=== PATIENT | female | born 1985 | race Caucasian/White ===

== ENCOUNTER 2021-02-05 08:10 | Outpatient (CLI) | payer BC, SELFPAY ==
--- NOTE | 2021-02-17 17:13 | WPDHOMESLEEP ---
Sleep Study - Home Unattended Date of Study: 02/05/21 <Ashia Jackson DO - Last Filed: 02/17/21 17:47> Ordering Provider: Natasha Miller NP <Ashia Jackson DO - Last Filed: 02/17/21 17:47> Interpreting Provider: Ashia Jackson DO <Ashia Jackson DO - Last Filed: 02/17/21 17:47> Home Sleep Study Type: Apnea Link Air <Ashia Jackson DO - Last Filed: 02/17/21 17:47> Height: 1.63 m <Ashia Jackson DO - Last Filed: 02/17/21 17:47> Weight: 101.605 kg <Ashia Jackson DO - Last Filed: 02/17/21 17:47> Body Mass Index: 38.4 <Ashia Jackson DO - Last Filed: 02/17/21 17:47> Neck Circumference (inches): 14.50 <Ashia Jackson DO - Last Filed: 02/17/21 17:47> [place]: 6 <Ashia Jackson DO - Last Filed: 02/17/21 17:47> Reason for Sleep Study The patient has snoring, daytime sleepiness and witnessed apneas. <Ashia Jackson DO - Last Filed: 02/17/21 17:47> Sleep History The patient is a 36 y/o female with asthma and anxiety that had a home sleep test ordered due to snoring, witnessed apneas and excessive daytime sleepiness. 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 She denies awakening from sleep short of breath. She rarely awakens at night with heartburn, belching or cough. The patient frequently snores loud enough that others complain. The patient frequently has breathing problems at night observed by others. The patient denies heart palpitations throughout the night. The patient denies sleep paralysis, cataplexy, hypnagogic/hypnopompic hallucinations. The patient rarely has trouble at work due to sleepiness. The patient rarely has nightmares. The patient rarely feels sad or depressed but often feels anxious. The patient denies kicking throughout the night. She denies crawling and aching feelings in his legs as well as leg pain. She often grinds her teeth at night and frequently wakes up with morning jaw pain. She is rarely bothered by pain throughout the day and is never awakened by pain during the night. The patient rarely wakes up feeling stiff in the morning with sore and achy muscles. The patient states that she goes to bed at 12:30 am on the weekdays and the weekends. It takes her 5 minutes to fall asleep. She wakes up 5 times throughout the night to roll over and she can fall back asleep within 1 minute. The patient wakes up at 7 am on the weekdays and the weekends. She gets 6.5 hours of sleep nightly. She currently lives with her and 3 kids. She does not consume any caffeinated beverages 2 hours prior to bedtime. The patient does not engage in physical exercise before bedtime. She will watch television before falling asleep. She does not take naps in the afternoon. The patient does drink 3 caffeinated beverages per day. The patient will drink 1 alcoholic beverage per day. The patient denies tobacco and recreational drug use. <Ashia Jackson DO - Last Filed: 02/17/21 17:47> [facility] Past Medical History Medical History: Medical History Anxiety disorder, unspecified (~05/2018) Asthma (~1988) Broken finger Dyslipidemia Tibia and fibula open fracture, right (~11/2018) <Ashia Jackson DO - Last Filed: 02/17/21 17:47> Surgical History Surgical History: Surgical History H/O dilation and curettage 03/04/2014 Status post ORIF of fracture of ankle (~11/2018) Right ankle and leg plate and 7 screws (one broken) <Ashia Jackson DO - Last Filed: 02/17/21 17:47> Family History Family History: Family History Grandparent Family history of glaucoma Cerebrovascular accident Family history of heart disease in male family member before age 55 Father Family history of heart disease in male family member before ag
[2021-02-17 17:46] VITALS: BMI 38.4
== END 2021-02-08 09:47 | disposition home or self-care (01) ==
LOC: ANHCSM 08:12
PROVIDERS: PCP Family Medicine; Visit Provider Nurse Practitioner Family
DX: G47.10 Hypersomnia, unspecified (principal); G47.9 Sleep disorder, unspecified
CPT/HCPCS: 95806

== ENCOUNTER 2022-03-10 15:02 | Outpatient (CLI) | payer BC, SELFPAY ==
[2022-03-10 16:51] LABS: SARS-CoV-2 RNA PCR Negative
== END 2022-03-10 15:03 | disposition home or self-care (01) ==
LOC: ANHLAB 15:06
PROVIDERS: PCP Family Medicine; Visit Provider Nurse Practitioner Family
DX: R68.89 Other general symptoms and signs (principal); Z20.822 Contact with and (suspected) exposure to COVID-19
CPT/HCPCS: U0003; U0005

== ENCOUNTER 2022-03-14 09:38 | Outpatient (CLI) | payer BC, SELFPAY ==
--- NOTE | 2022-03-14 11:00 | NEURO_ITS ---
Impression: # Complains of pain in upper extremities. # Subtle evolving Carpal Tunnel Syndrome. # No ulnar neuropathy. # Normal needle/EMG exam. Motor Nerve Conduction Upper Extremities Median Nerve Conduction Velocity (m/sec) Terminal Latency (msec) Response Voltage(mV) Elbow-Wrist Wrist Elbow Wrist Right 60 3.5 3 4 Left 59 3.3 2 3 Ulnar Nerve Conduction Velocity (m/sec) Terminal Latency (msec) Response Voltage(mV) Above Elbow Below Elbow Wrist Above Elbow Below Elbow Wrist Right 60 2.5 7 8 Left 59 2.5 6 7 F-Wave Latency Median (ms) Ulnar (ms) Right 27.4 26.8 Left 27.4 27.2 Sensory Nerve Conduction Upper Extremities Median Nerve Stimulation Terminal Latency (msec) Wrist/Digit Response Voltage (uV) Wrist Right 3.2/3.2 68/73 Left 3.0/3.0 68/74 Ulnar Nerve Stimulation Terminal Latency (msec) Wrist/Digit Response Voltage (uV) Wrist Right 2.5 72 Left 2.3 73 Radial Nerve Terminal Latency (msec) Response Voltage(mV) Right 2.3 12 Left 2.0 21 Left Right Muscles Examined Fibrillation Fasciculation Scarcity Voltage Duration Left Right Left Right Left Right Left Right Left Right Deltoid Biceps X X Brachioradialis Triceps X X Pronator Teres X X Ext Indicis X X Ext Digitorum X X Abd Poll Brev X X 1st Dorsal Interosseus Paraspinals MTDD
== END 2022-03-14 09:39 | disposition home or self-care (01) ==
PROVIDERS: PCP Family Medicine; Visit Provider Family Medicine
DX: R20.0 Anesthesia of skin (principal)
CPT/HCPCS: 95886; 95911

== ENCOUNTER 2022-03-29 07:55 | Outpatient (CLI) | payer BC, SELFPAY ==
--- NOTE | 2022-04-18 20:12 | WPDSLEEPSTUD ---
Sleep Study Date of Study: 03/29/22 Ordering Provider: Natasha Miller NP Interpreting Physician: Yajaira Jean Baptiste MD Sleep Study Type: Polysomnogram Height: 1.63 m Weight: 99.79 kg Body Mass Index: 37.8 Neck Circumference (inches): 16.5 [place]: 6 Reason for Sleep Study * Home sleep test 02/05/2021 - AHI was 1 minimum saturation 92%. This was a negative study, and she has persistent sleepiness and loud snoring. Sleep History Eboni Pettit is a 37-year-old female with asthma and anxiety. She had a negative home sleep test February 05, 2021. She returns for a basic nocturnal polysomnogram because she continues to have significant complaints of snoring, witnessed apneas and excessive daytime sleepiness. 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 She denies awakening from sleep short of breath. She rarely awakens at night with heartburn, belching or coughing. The patient frequently snores loudly enough that others complain. The patient frequently has breathing problems at night observed by others. The patient denies heart palpitations throughout the night. The patient denies feeling paralyzed on sleep onset or waking, muscle weakness with strong emotion, or vivid dreams on sleep onset or waking. The patient rarely has trouble at work due to sleepiness. The patient rarely has nightmares. The patient rarely feels sad or depressed but often feels anxious. The patient denies kicking throughout the night. She denies crawling and aching feelings in her legs as well as leg pain. She often grinds her teeth at night and frequently wakes up with morning jaw pain. She is rarely bothered by pain throughout the day and is never awakened by pain during the night. The patient rarely wakes up feeling stiff in the morning with sore and achy muscles. Normal bedtime is 12:30 am on the weekdays, taking 5 minutes to fall asleep. She wakes up 5 times throughout the night to roll over and she can fall back asleep within 1 minute. The patient wakes up at 7 am on the weekdays and the weekends. She gets 6.5 hours of sleep nightly. She currently lives with her and 3 kids. She does not take naps in the afternoon. she never awakens feeling refreshed. She always has difficulties with memory and concentration. In the last year she reports gaining 20 lb. Habits: No tobacco. Caffeine: 3 caffeinated beverages per day. Alcohol: 1 alcoholic beverage per day. No recreational drug use. [facility] Past Medical History Medical History Anxiety disorder, unspecified (~05/2018) Asthma (~1987) Broken finger Dyslipidemia Tibia and fibula open fracture, right (~11/2018) Surgical History Surgical History H/O dilation and curettage 03/04/2014 Status post ORIF of fracture of ankle (~11/2018) Right ankle and leg plate and 7 screws (one broken) Family History Family History Grandparent Family history of glaucoma Cerebrovascular accident Family history of heart disease in male family member before age 55 Father Family history of heart disease in male family member before age 55 Social History Social History Smoking status: Never smoker Second hand tobacco smoke exposure: No Alcohol intake: current Drinks per week: 8 Substance use: never Lack of Transportation: No Lack of Food: Never True Current Housing: I Have Housing Concerned About Future Housing: No Difficulty Paying Gas/Electric Bills: No Difficulty Paying for Meds: No Currently Unemployed: No Education: Bachelor's Degree Difficulty w/ Childcare or Family Care: No 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
[2022-04-18 21:14] VITALS: BMI 37.8
== END 2022-03-30 06:28 | disposition home or self-care (01) ==
LOC: ANHCSM 07:56
PROVIDERS: PCP Family Medicine; Visit Provider Nurse Practitioner Family
DX: R40.0 Somnolence (principal); R06.83 Snoring; F41.9 Anxiety disorder, unspecified; E78.5 Hyperlipidemia, unspecified
CPT/HCPCS: 95810

== ENCOUNTER 2022-03-29 10:54 | Outpatient (CLI) | payer BC, SELFPAY ==
[2022-03-29 18:57] LABS: Basophils Percent Auto 0.6 % (0.2-1.2); Eosinophils Absolute Auto 0.1 K/mm3 (0-0.3); Eosinophils Percent Auto 1.4 % (0-4.4); Hematocrit 46.7 % (37.0-47.0); Hemoglobin 14.7 g/dL (12.0-15.0); Immature Granulocyte Absolute 0.03 K/mm3 (0.00-0.031); Immature Granulocyte Percent A 0.5 % (0-0.5); Lymphocytes Percent Auto 27.6 % (18.3-44.2); Mean Corpuscular HGB Conc 31.5 g/dl (32-36); Mean Corpuscular Hemoglobin 30.7 pg (26-34); Mean Corpuscular Volume 97.5 fl (80-100); Mean Platelet Volume 9.3 fl (7.4-10.4); Monocytes Absolute Auto 0.3 K/mm3 (0.1-0.6); Monocytes Percent Auto 5.1 % (2.6-8.5); Neutrophils Absolute Auto 4.2 K/mm3 (1.3-6.7); Neutrophils Percent Auto 64.8 % (45.5-73.1); Platelet Count Result 275 k/mm3 (150-375); Red Blood Count 4.79 M/mm3 (4.2-5.4); Red Cell Distribution Width 13.2 % (11.5-14.5); White Blood Count 6.5 K/mm3 (4.5-10.0)
[2022-03-29 19:28] LABS: Alanine Aminotransferase 29 U/L (6-35); Albumin Level 4.4 g/dL (3.5-5.1); Alkaline Phosphatase 68 U/L (38-126); Anion Gap 10 mmol/L (8-16); Aspartate Amino Transferase 52 U/L (14-36); Bilirubin,Total 0.6 mg/dL (0.2-1.3); Blood Urea Nitrogen 7 mg/dL (7-17); Calcium 8.9 mg/dL (8.4-10.2); Carbon Dioxide 29 mmol/L (22-30); Chloride 102 mmol/L (98-107); Estimated Glomerular Filt Rate > 60; Glucose 93 mg/dL (65-110); Potassium 3.9 mmol/L (3.4-5.0); Sodium 141 mmol/L (137-145)
[2022-03-29 20:30] LABS: Iron 111 ug/dL (37-170)
[2022-03-29 20:39] LABS: Percent Iron Saturation 37 % (20-50)
== END 2022-03-29 10:55 | disposition home or self-care (01) ==
LOC: ANHGOSHLAB 10:55
PROVIDERS: PCP Family Medicine; Visit Provider Nurse Practitioner Family
DX: R53.83 Other fatigue (principal); Z13.220 Encounter for screening for lipoid disorders
CPT/HCPCS: 36415; 80053; 82607; 82728; 83540; 83550; 84443; 85025

== ENCOUNTER → 2023-04-27 13:32 | Outpatient (CLI) | payer BC, SELFPAY ==
--- NOTE | ~2023-04-27 | XR_ITS ---
EXAMINATION: XR chest 2V DATE: 04/27/2023 13:46 INDICATION: Shortness of breath. TECHNIQUE: Frontal and lateral views of the chest were obtained. COMPARISON: Chest 2 views 10/24/2017 FINDINGS: There is no pneumonia, pleural effusion, or pneumothorax. The heart size is normal. IMPRESSION: 1. No acute cardiopulmonary disease. Reviewed, dictated and finalized at location A. MACY SERVICE ASSOCIATE
== END ==
PROVIDERS: PCP Nurse Practitioner Family; Visit Provider Nurse Practitioner Family
DX: R06.02 Shortness of breath (principal)
CPT/HCPCS: 71046

== ENCOUNTER 2023-06-01 09:17 | Outpatient (CLI) | payer BC, SELFPAY ==
--- NOTE | ~2023-06-01 | CT_ITS ---
EXAMINATION: CT sinus wo con DATE: 06/01/2023 09:59 INDICATION: Chronic sinusitis TECHNIQUE: Computed tomography (CT) of the paranasal sinuses was performed without contrast. Iterativ e reconstruction technique was employed. Exam dose: 352.32 mGy-cm total exam DLP. COMPARISON: None FINDINGS: Midline nasal septum Symmetric moderately prominent soft tissue swelling of the nasal turbinates. Bilateral middle nasal turbinate intralamellar cell. Up to 8 mm vertical 16.7 mm horizontal soft tissue density at the floor of the left maxillary antrum. Minimal focal soft tissue thickening is noted in the posterior right ethmoid area. Otherwise there i s no mucoperiosteal thickening or soft tissue mass density or fluid level of any of the paranasal sin uses. Left and probable right nasal antral window. The mastoid air cells are normally developed and aerated. Middle and inferior apparatus appear normal bilaterally. IMPRESSION: Approximately 8 x 16 mm soft tissue thickening at the floor of the left maxillary sinus and mild focal right ethmoid air cell mucoperiosteal thickening Paranasal sinuses and mastoid air cells are otherwise normally developed and aerated Left and probable right nasal antral windows Reviewed, dictated and finalized at Location A. Reviewed, dictated and finalized at location L. N GATEMAN IMPRESSION: Approximately 8 x 16 mm soft tissue thickening at the floor of the left maxillary sinus and mild focal right ethmoid air cell mucoperiosteal thic kening Paranasal sinuses and mastoid air cells are otherwise normally developed and ae rated Left and probable right nasal antral windows
== END 2023-06-01 09:18 | disposition home or self-care (01) ==
LOC: ANHIMG 09:20
PROVIDERS: PCP Nurse Practitioner Family; Visit Provider Allergy & Immunology
DX: J32.9 Chronic sinusitis, unspecified (principal)
CPT/HCPCS: 70486

== ENCOUNTER 2024-06-24 11:22 | Outpatient (CLI) | payer BC, SELFPAY ==
--- NOTE | ~2024-06-24 | XR_ITS ---
EXAM: XR finger 2nd RT min 2V DATE: 06/24/2024 11:35 HISTORY: M79.646 - Pain in unspecified finger(s) . COMPARISON: None available. FINDINGS: Normal mineralization. No fracture or dislocation. No lytic or blastic lesion. Joint space s are maintained. No erosion or periosteal change. Soft tissues within normal limits. IMPRESSION: No acute osseous finding in the right second digit. Reviewed, dictated and finalized at location K. NEERING GEOLOGIST
== END 2024-06-24 11:23 | disposition home or self-care (01) ==
LOC: GOSHIMG 11:22
PROVIDERS: PCP Student in an Organized Health Care Education/Training Program; Visit Provider Student in an Organized Health Care Education/Training Program
DX: M79.644 Pain in right finger(s) (principal)
CPT/HCPCS: 73140

== ENCOUNTER 2024-07-16 08:30 | Outpatient (CLI) | payer BC, SELFPAY ==
--- OUTSIDE RECORDS SUMMARY | 2024-07-16 08:44 | XMS_ITS | Encounter Summary ---
Author Organization [facility] Address [address] [place] [address] Care Team Providers Care Oracle Developer Name Role Phone Andre Lopez MD Primary Care Provider Encounter Details Date Type Department Care Team (Late st Contact Info) Description 05/08/2006 Outpatient Historical [facility] Family Medicine Tia Aragon [address] [facility] [place] [address] [place] [address] [address] [place] [address] Social History Tobacco Use Types Packs/Day Years Used Date Smoking Tobacco: Never Assessed Comments Unknown Sex and Gender Information Value Date Recorded Sex Assigned at Not on file Legal Sex Female 2:59 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 Gender Identity Not on file Sexual Orientation Not on file documented as of this encounter Last Filed Vital Signs Vital Sign Reading Time Taken Comments Blood Pressure 122/80 05/08/2006 9:00 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 Pulse 72 05/08/2006 9:00 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 Temperature - - Respiratory Rate - - Oxygen Saturation - - Inhaled Oxygen Concentration - - Weight 85.3 kg (188 lb) 05/08/2006 9:00 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 Height - - Body Mass Index - - documented in this encounter Plan of Treatment Not on file documented as of this encounter Visit Diagnoses Not on filedocumented in this encounter Additional Health Concerns Infection Onset Date Last Indicated Resolved Time R/O Respiratory 09/19/2021 09/19/2021 09/19/2021 8 :47 PM CDT RHINO/ENTEROVIRUS (Adult) 09/19/2021 09/19/2021 1:16 AM CDT documented as of this encounter Care Teams Oracle Developer Relationship Specialty Start Date End Date Andre Lopez MD [address] [place] [address] PCP - General Family Practice 10/30/15 documented as of this encounter
--- OUTSIDE RECORDS SUMMARY | 2024-07-16 08:44 | XMS_ITS | Encounter Summary ---
Author Organization [facility] Address [address] [place] [address] Attn: Epic Prelude ADT [facility] [place] [place] [address] Care Team Providers Care Lap Maker Name Role Phone Andre Lopez MD Primary Care Provider Encounter Details Date Type Department Care Team (Latest Contact Info) Description 05/11/2006 Orders Only Mayuri Mae MD [address] [facility] [address] [place] [id number] Social History Tobacco Use Types Packs/Day Years Used Date Smoking Tobacco: Never Assessed Comments Unknown Sex and Gender Information Value Date Recorded Sex Assigned at Not on file Legal Sex Female 2:59 AM FITTER HAND Gender Identity Not on file Sexual Orientation Not on file documented as of this encounter Progress Notes * Mayuri Florez - 09/25/2007 11:45 AM CDT TIME:08:04 am PATIENT`S HOME PHONE: PATIENT`S WORK PHONE: PATIENT`S INSURANCE: DGSE WHO TOOK THE CALL: Geni Wright M GENERAL INFORMATION PATIENT STATUS: Established Patient. PCP: Tu. ALTERNATIVE PHONE NUMBER: [phone] WHO CALLED: Patient called. SECTION 1: REQUESTED ACTION [email or web address] 05/11/06 at 08:05 am: pt is calling back because the yeast infection has not gotten better, it is worse. pt has called again...ekta 05-11-06 DOCTOR`S RESPONSE: aaron 05/11/06 at 01:03 pm Please call pt- explain that because she completed aZ-alexander last week the abx is still working and possibly causing her to have a continued yeast infection, therefore she may need another dose of Diflucan to clear her yeast infection. If not better in 2-3 days after 2nd dose- I would encourage her to make another appt (I am on vacation until next 05/18/06.)..Please call pharmacy too. Thanks LOU MEDICATIONS: Call in to Pharmacy DIFLUCAN ORAL TABLET 150 MG, one tab PO X1, 1 Dispensed, status: CONTINUED, 05/11/2006. SECTION 2: 05-11-06 Spoke with pt and called in RX. [email or web address] chew Electronically Signed by: Julianna Wood on May documented in this encounter Plan of Treatment Not on file documented as of this encounter Visit Diagnoses Not on filedocumented in this encounter Additional Health Concerns Infection Onset Date Last Indicated Resolved Time R/O Respiratory 09/19/2021 09/19/2021 09/19/2021 8 :47 PM CDT RHINO/ENTEROVIRUS (Adult) 09/19/2021 09/19/2021 1:16 AM CDT documented as of this encounter Care Teams Lap Maker Relationship Specialty Start Date End Date Andre Lopez MD [address] [place] [address] PCP - General Family Practice 10/30/15 documented as of this encounter
--- OUTSIDE RECORDS SUMMARY | 2024-07-16 08:44 | XMS_ITS | Encounter Summary ---
Author Organization [facility] Address [address] [place] [address] Care Team Providers Care Seconds Inspector Name Role Phone Andre Lopez MD Primary Care Provider Encounter Details Date Type Department Care Team (Late st Contact Info) Description 08/14/2006 Outpatient Historical [facility] Family Medicine Tia Aragon [address] [facility] [address] [place] [address] [place] [address] [facility] [address] [place] [address] Social History Tobacco Use Types Packs/Day Years Used Date Smoking Tobacco: Never Assessed Comments Unknown Sex and Gender Information Value Date Recorded Sex Assigned at Not on file Legal Sex Female 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 Gender Identity Not on file Sexual Orientation Not on file documented as of this encounter Last Filed Vital Signs Vital Sign Reading Time Taken Comments Blood Pressure 104/74 08/14/2006 9:20 AM CDT Pulse - - Temperature 37.1 C (98.7 F) 08/14/2006 9:20 AM CDT Respiratory Rate - - Oxygen Saturation - - Inhaled Oxygen Concentration - - Weight 87.1 kg (192 lb) 08/14/2006 9:20 AM CDT Height - - Body Mass Index - [...] documented as of this encounter Care Teams Seconds Inspector Relationship Specialty Start Date End Date Andre Lopez MD [address] [place] [id number] PCP - General Family Practice 10/30/15 documented as of this encounter
--- OUTSIDE RECORDS SUMMARY | 2024-07-16 08:44 | XMS_ITS | Encounter Summary ---
Author Organization [facility] Address [address] [place] [address] Attn: Epic Prelude ADT [facility] [place] [address] Care Team Providers Care Bank Vault Custodian Name Role Phone Andre Lopez MD Primary Care Provider Encounter Details Date Type Department Care Team (Latest Contact Info) Description 08/14/2006 Orders Only Mayuri Mae MD [address] [facility] [address] [place] [address] Social History Tobacco Use Types Packs/Day Years Used Date Smoking Tobacco: Never Assessed Comments Unknown Sex and Gender Information Value Date Recorded Sex Assigned at Not on file Legal Sex Female 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 BLOOD PRESSURE: 104/74. Left Arm Sitting ( lg cuff) TEMPERATURE: 98.7??f. Oral ALLERGIES: cortisone CHIEF COMPLAINT Patient complains of sinus congestion, chest congestion, cough, sore throat.est pt/adia HISTORY: HISTORY OF PRESENT ILLNESS: Pt reports sore throat with nasal drainage for last week; + fever; + sinus tenderness; known history of seasonal allergies- uses Rachel but has not been using nasal steroid (originally prescribed by psychologist experimental) ROS: GENERAL: HAS A FEVER, normal activity, DECREASED ENERGY LEVEL, FEELS FATIGUED. EYES: No vision changes or diplopia. ENT: See HISTORY OF PRESENT ILLNESS, EXPERIENCES A FULL FEELING IN THE EARS, no tinnitus. CARDIAC: No chest pain, palpitations, orthopnea, dyspnea on exertion, or paroxysmal nocturnal dyspnea. RESPIRATORY: No dyspnea, cough, hemoptysis or wheezing. SKIN/BREAST/CHEST: See HISTORY OF PRESENT ILLNESS. : No frequency, urgency, hematuria or dysuria. GI: No abdominal pain, nausea, vomiting, diarrhea, constipation, melena, or hematochezia. Patient's history reviewed; no changes. PHYSICAL EXAMINATION: CONSTITUTIONAL: GENERAL APPEARANCE: female, OVERWEIGHT BODY HABITUS, developmentally normal, MILDLY DISTRESSED. EYES: CONJUNCTIVAE/LIDS: Conjunctivae and lids appear normal. PUPILS: Pupils equal and normally reactive to light and accommodation. EARS, NOSE, MOUTH AND THROAT: EARS: Tympanic membranes shiny without retraction. Canals unremarkable. Hearing grossly normal. NOSE (AND SINUS): PURULENT NASAL DISCHARGE NOTED BILATERALLY, TURBINATES INFLAMED BILATERALLY. ORAL: Absent tonsils, ERYTHEMA NOTED ON THE POSTERIOR PHARYNX. NECK/THYROID: No enlargement, tenderness, or mass in the thyroid noted. RESPIRATORY: Clear to auscultation and percussion. Normal respiratory effort. CARDIOVASCULAR: CARDIAC: Regular rhythm. No murmurs, rubs, or gallops. LYMPHATICS: A NON-TENDER, ENLARGED LYMPH NODE NOTED IN THE LEFT ANTERIOR CERVICAL CHAIN. SKIN: SKIN: Warm, dry, no diaphoresis, no significant lesions, irritation, rashes or ulcers. No induration, obvious subcutaneous nodules or tightening. ASSESSMENT/PLAN: 461.9-SINUSITIS UNSPECIFIED likely caused by seasonal allergies; abx tx causes vaginal yeast infections- will provide prophylaxis; encouraged continued use of Rachel also MEDICATIONS: AMOXICILLIN ORAL TABLET 875 MG, one tab PO BID for 10 days, 20 Dispensed, status: NEW PRESCRIPTION,08/14/2006. FLUCONAZOLE ORAL TABLET 150 MG, one tab PO on 5th day of abx tx, 1 Dispensed, 1 Fills, status: NEW PRESCRIPTION, 08/14/2006. FLUTICASONE PROPIONATE NASAL SUSPENSION 50 MCG/ACT BOTTLES, 2 sprays each nostril daily, 1 Dispensed, 1 Fills, status: NEW PRESCRIPTION, 08/14/2006. RETURN VISIT: Instructed to return earlier than the next regularly scheduled appointment if not improving. 08/14/06 09:53 a Electronically signed by Mayuri Mae MD. TEACHING PHYSICIAN COMMENTS: I have reviewed the resident's note and I agree with the resident's evaluation and plan. S.P. Electronically Signed by: Francisca Suresh MD on July documented in this encounter Plan of Treatment Not on file documented as of this encounter Visit Diagnoses Not on filedocumented in this encounter Additional Health Concerns Infection Onset Date Last Indicated Resolved Time R/O Respiratory 09/19/2021 09/19/2021 09/19/2021 8 :47 PM CDT RHINO/ENTEROVIRUS (Adult) 09/19/2021 09/19/2021 1:16 AM CDT documented as of this encounter Care Teams Bank Vault Custodian Relationship Specialty Start Date End Date Andre Lopez MD [address] [place] [address] PCP - General Family Practice 10/30/15 documented as of this encounter
--- OUTSIDE RECORDS SUMMARY | 2024-07-16 08:44 | XMS_ITS | Encounter Summary ---
Author Organization [facility] Address [address] [place] [address] Care Team Providers Care Sinker Puller Name Role Phone Andre Lopez MD Primary Care Provider [phone] Encounter Details Date Type Department Care Team (Latest Contact Info) Description 05/08/2006 Outpatient Historical [facility] Family Medicine [facility] [address] [facility] [address] [place] [address] Kam Grsosman Other Malaise and Fatigue (Primary Dx) Social History Tobacco Use Types Packs/Day Years Used Date Smoking Tobacco: Never Assessed Comments Unknown Sex and Gender Information Value Date Recorded Sex Assigned at Not on file Legal Sex Female 2:59 AM AUDIT PRACTICE INTERN Gender Identity Not on file Sexual Orientation Not on file documented as of this encounter Plan of Treatment Not on file documented as of this encounter Procedures Procedure Name Priority Date/Time Associated Diagnosis Comments TSH WITH REFLEX FT4 AND FT3 Routine 05/08/2006 10:20 AM AUDIT PRACTICE INTERN documented in this encounter Results * TSH WITH REFLEX FT4 AND FT3 (05/08/2006 10:20 AM AUDIT PRACTICE INTERN) TSH 2.11 0.27 - 4.20 uU/mL INTERFACE SYSTEM 05/08/2006 10:2 0 AM AUDIT PRACTICE INTERN us Kam Grossman CHEMISTRY ORDERABLES Edited INTERFACE SYSTEM Refer to clinic/hospital department documented in this encounter Visit Diagnoses Diagnosis Other malaise and fatigue- Primary documented in this encounter Additional Health Concerns Infection Onset Date Last Indicated Resolved Time R/O Respiratory 09/19/2021 09/19/2021 09/19/2021 8 :47 PM CDT RHINO/ENTEROVIRUS (Adult) 09/19/2021 09/19/2021 1:16 AM CDT documented as of this encounter Care Teams Sinker Puller Relationship Specialty Start Date End Date Andre Lopez MD [address] [place] [address] PCP - General Family Practice 10/30/15 documented as of this encounter
--- OUTSIDE RECORDS SUMMARY | 2024-07-16 08:44 | XMS_ITS | Encounter Summary ---
Author Organization [facility] Address [address] [place] [address] Attn: Epic [place] [address] Care Team Providers Care Laborer Landscape Name Role Phone Andre Lopez MD Primary Care Provider [phone] Encounter Details Date Type Department Care Team (Latest Contact Info) Description 05/08/2006 Orders Only Mayuri Mae MD [address] [facility] [address] [place] [id number] Social History Tobacco Use Types Packs/Day Years Used Date Smoking Tobacco: Never Assessed Comments Unknown Sex and Gender Information Value Date Recorded Sex Assigned at Not on file 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 BLOOD PRESSURE: 122/80. Right Arm Sitting PULSE: 72. Right Radial, Regular ALLERGIES: No known drug allergies. CHIEF COMPLAINT Seen as a new patient to get established with the practice. Patient complains of pain. right rib HISTORY: HISTORY OF PRESENT ILLNESS: Pt here to establish care; c/o vaginal burning with pain at introitus; slight bleeding during sexual intercourse 2 days ago; severe pain since; denies dysuria; denies abdopain; + white vaginal discharge; no further bleeding; LMP 04/14/06; pt also reports feeling tired a lot ; tries to get involved in extracurricular school activities to motivate herself; I cry sometimes ; feels may be worse prior to menstruation each month ROS: GENERAL: Normal activity and energy level, no change in appetite. No major weight gain or loss. No malaise, chills, fever, diaphoresis. ENT: No hearing loss, epistaxis, hoarseness or dysphagia. No sinus congestion. recent URI- completed Z-alexander last week ENDOCRINE: No heat or cold intolerance, no excessive thirst. CARDIAC: No chest pain, palpitations, orthopnea, dyspnea on exertion, or paroxysmal nocturnal dyspnea. RESPIRATORY: No dyspnea, cough, hemoptysis or wheezing. SKIN/BREAST/CHEST: No rash. : See HISTORY OF PRESENT ILLNESS. GI: No abdominal pain, nausea, vomiting, diarrhea, constipation, melena, or hematochezia. PAST MEDICAL HISTORY: MEDICAL: Asthma; abscess requiring surgical I and D right knee (2005); seasonal allergies SURGICAL: Tonsils and adenoids. (1998); right ankle surgery (1994) CHILDHOOD DISEASES: Normal childhood diseases. CURRENT MEDICATIONS: Advair, Rachel, Ortho tricyclen ALLERGIES/ADVERSE REACTIONS: No known drug allergies. ? reaction with cortisone injections in left foot several years ago FAMILY HISTORY: FATHER: The father is living. No major illnesses are known. age 54 MOTHER: The mother is living. No major illnesses are known. age 50 SIBLINGS: NUMBER OF SIBLINGS: 2 ( brother age 16, sister age 19) SOCIAL HISTORY: MARITAL HISTORY: MARITAL STATUS: single PERSONS IN HOME: The patient lives with a grandmother. TOBACCO USE: Has no significant smoking history. OCCUPATION: . 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 CAFFEINE: The patient drinks caffeine once a day. tea EXERCISES: The patient exercises five times per week. The exercise is predominantly dancing. PHYSICAL EXAMINATION: CONSTITUTIONAL: GENERAL APPEARANCE: Healthy appearing patient in no distress. EARS, NOSE, MOUTH AND THROAT: EXTERNAL/EARS AND NOSE: Overall appearance normal with no scars, lesions or masses. EARS: Tympanic membranes shiny without retraction. Canals unremarkable. Hearing grossly normal. NOSE (AND SINUS): No abnormality of the nose or sinuses is noted. ORAL: Inspection of gums, lips, palate, and teeth normal. No scars, lesions, or masses. Oral mucosaunremarkable with non-inflamed posterior pharynx. NECK/THYROID: Trachea midline. No thyroid enlargement, tenderness, or mass. No supraclavicular or cervical adenopathy. RESPIRATORY: Clear to auscultation and percussion. Normal respiratory effort. CARDIOVASCULAR: CARDIAC: Regular rhythm. No murmurs, rubs, or gallops. LYMPHATICS: No lymphadenopathy in the neck, axillae, or groin. GASTROINTESTINAL: ABDOMEN: Soft, non-tender, without masses. Bowel sounds active. LIVER/SPLEEN/KIDNEY: No hepatosplenomegaly, tenderness or nodularity. Kidneys not palpable. GENITOURINARY: VAGINAL ERYTHEMA, VULVAR IRRITATION NOTED, WHITE STICKY CLUMPY DISCHARGE NOTED. folliculitis secondary to shaved pubic hair URETHRA: No discharge, no bleeding, TENDERNESS NOTED. BLADDER: Without fullness, masses or tenderness. CERVIX: The cervix is clear, firm and closed. No visible lesions. No abnormal discharge. UTERUS: Uterus non-tender and of normal size, shape and consistency. Position and mobility are normal. ADNEXA/PARAMETRIA: No masses, organomegaly or local guarding. MUSCULOSKELETAL EXAM: GAIT/STATION: Normal gait. DIGITS/NAILS: No clubbing, cyanosis, inflammation, or ischemia. SKIN: SKIN: Warm, dry, no diaphoresis, no significant lesions, irritation, rashes or ulcers. No induration, obvious subcutaneous nodules or tightening. HEALTH MAINTENANCE: LAST PAP DATE: 2005. ( [facility]) PAP SMEAR RESULT: normal HISTORY: : 0 PARA: 0 PREVENTIVE COUNSELING The patient was counseled regarding regular self- examination of the breasts on a monthly basis, importance of regular PAP smears, the use of condoms for the prevention of HIV and other sexually transmitted diseases. Need for HPV vaccine ASSESSMENT/PLAN: 493.90-ASTHMA UNSPECIFIED Followed by Pulmonology (Armani); well controlled with Advair and prn Albuterol 112.1-YEAST INFECTION Likely due to recent abx tx for URI. MEDICATIONS: DIFLUCAN ORAL TABLET 150 MG, one tab PO X1, 1 Dispensed, status: NEW PRESCRIPTION, 05/08/2006. 780.79-FATIGUE with occas. tearfulness; seems to be related to monthly menstruation; pt encouraged to keep diary of feelings in regards to menses. LAB ORDERS: Order number: [id number] Test Ordered: TSH (REFLEX FREE T4/FREE T3) 1727 TIME PHYSICIAN WITH PATIENT: TOTAL: 25 minutes. REGARDING: Need for HPV vaccine; pt plans to decide and arrange with either MFM or her primary senior pensions administrator. RETURN VISIT: Patient is to return on an as needed basis. Instructed to call if not improving. 05/08/06 10:00 a Electronically signed by Mayuri Mae MD. TEACHING PHYSICIAN COMMENTS: I have reviewed the resident's note and I agree with the resident's evaluation and plan. S.P. Electronically Signed by: Francisca Suresh MD on Wednesday, May 17, 2006 documented in this encounter Plan of Treatment Not on file documented as of this encounter Visit Diagnoses Not on filedocumented in this encounter Additional Health Concerns Infection Onset Date Last Indicated Resolved Time R/O Respiratory 09/19/2021 09/19/2021 09/19/2021 8 :47 PM CDT RHINO/ENTEROVIRUS (Adult) 09/19/2021 09/19/2021 1:16 AM CDT documented as of this encounter Care Teams Laborer Landscape Relationship Specialty Start Date End Date Andre Lopez MD [address] [place] [address] PCP - General Family Practice 10/30/15 documented as of this encounter
--- OUTSIDE RECORDS SUMMARY | 2024-07-16 08:44 | XMS_ITS | Encounter Summary ---
Author Organization [facility] Address 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 Gender Identity Not on file Sexual Orientation Not on file documented as of this encounter Plan of Treatment Not on file documented as of this encounter Visit Diagnoses Diagnosis Sprain of ankle, unspecified site- Primary documented in this encounter Additional Health Concerns Infection Onset Date Last Indicated Resolved Time R/O Respiratory 09/19/2021 09/19/2021 09/19/2021 8 :47 PM CDT RHINO/ENTEROVIRUS (Adult) 09/19/2021 09/19/2021 1:16 AM CDT documented as of this encounter Care Teams Health Plan Manager Relationship Specialty Start Date End Date Andre Lopez MD [address] [place] [phone] PCP - General Family Practice 10/30/15 documented as of this encounter
--- OUTSIDE RECORDS SUMMARY | 2024-07-16 08:45 | XMS_ITS | Encounter Summary ---
Author Organization [facility] Address 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 Oral WEIGHT: 211lbs. BLOOD PRESSURE: 987/4. Left Arm Sitting PULSE: 62. Left Radial, Regular MEDICATIONS: Medications may have changed. to review medications. TOBACCO USE: Patient does not currently use tobacco. CHIEF COMPLAINT Patient complains of headache. swollen glands. est [facility] HISTORY: one week ago, started having swelling of lymph nodes in neck. No significant ST though. mild sinus drainage but not much rhinorrhea, mild cough. Feeling okay otherwise, tired. Gained 40 pounds over past year. Boy friend of 5 years killed in november in motorcycle accident. since then has not been eating much differently. Had a knee injury which prevented activity but still feels weight gain has been larger than expected. exercising on [employer] machine 30 minutes 4times a week since (x 3 weeks). Also see senior report developer for asthma medication and TRAMAINE. Has moved and would like to see someone closer. Would like to start receiving care here for those issues. PHYSICAL EXAMINATION: CONSTITUTIONAL: GENERAL APPEARANCE: Healthy appearing patient in no distress. EARS, NOSE, MOUTH AND THROAT: EARS: Tympanic membranes shiny without retraction. Canals unremarkable. Hearing grossly normal. NOSE (AND SINUS): No abnormality of the sinuses or nasal airways. ORAL: Inspection of gums, lips, palate, and teeth normal. No scars, lesions, or masses. Oral mucosaunremarkable with non-inflamed posterior pharynx. NECK/THYROID: No enlargement, tenderness, or mass in the thyroid noted. RESPIRATORY: Clear to auscultation and percussion. Normal respiratory effort. CARDIOVASCULAR: CARDIAC: Regular rhythm. No murmurs, rubs, or gallops. LYMPHATICS: MULTIPLE TENDER, ENLARGED LYMPH NODES NOTED IN THE ANTERIOR CERVICAL CHAINS BILATERALLY. GASTROINTESTINAL: LIVER/SPLEEN/KIDNEY: SPLEEN IS TENDER TO PALPATION. ASSESSMENT/PLAN: 493.90-ASTHMA UNSPECIFIED previously on 250/50 advair, recently decreased to 100/50. MEDICATIONS: ADVAIR DISKUS INHALATION MISCELLANEOUS 100-50 MCG/DOSE DISKS, 1 INHALATION TWICE DAILY, 1 Dispensed, 3 Fills, status: NEW PRESCRIPTION, 05/16/2007. ALBUTEROL INHALATION AEROSOL SOLUTION 90 MCG/ACT INHALERS, 2 PUFFS Q4 HR INHALATION prn, 1 Dispensed, 6 Fills, status: NEW PRESCRIPTION, 05/16/2007. 783.1-SYMPTOM, ABNORMAL WEIGHT GAIN LAB ORDERS: Order number: [id number] Test Ordered: TSH (REFLEX FREE T4/FREE T3) 1727 Order number: [id number] Test Ordered: LIPID PANEL 1078 Order number: [id number] Test Ordered: GLUCOSE LEVEL, FASTING 1098 785.6-LYMPHADENOPATHY LAB ORDERS: Order number: [id number] Test Ordered: MONONUCLEOSIS SCREEN W/ REFLEX EBV IGM AB 5108 477.9-RHINITIS ALLERGIC UNSPECIFIED MEDICATIONS: CLIF ORAL TABLET 60 MG, 1 Two Times A Day, As Needed, 30 Dispensed, 6 Fills, status: NEW PRESCRIPTION, 05/16/2007. RETURN VISIT: Instructed to return earlier than the next regularly scheduled appointment if not improving. 05/16/07 03:09 p Electronically signed by Dionne Anderson MD. TEACHING PHYSICIAN COMMENTS: I have reviewed the resident's note and I agree with the resident's evaluation and plan.jll Electronically Signed by: Wei Chaidez MD on Monday, May 28, 2007 documented in this encounter Plan of Treatment Not on file documented as of this encounter Visit Diagnoses Not on filedocumented in this encounter Additional Health Concerns Infection Onset Date Last Indicated Resolved Time R/O Respiratory 09/19/2021 09/19/2021 09/19/2021 8 :47 PM CDT RHINO/ENTEROVIRUS (Adult) 09/19/2021 09/19/2021 1:16 AM CDT documented as of this encounter Care Teams Bridge Design Engineer Relationship Specialty Start Date End Date Andre Lopez MD [address] [place] [address] PCP - General Family Practice 10/30/15 documented as of this encounter
--- OUTSIDE RECORDS SUMMARY | 2024-07-16 08:45 | XMS_ITS | Clinical Summary ---
Author Organization [facility] Address [address] [place] [address] Care Team Providers Care Cat Scan Technologist Name Role Phone Andre Lopez MD Primary Care Provider [phone] Allergies Active Allergy Reactions Criticality Noted Date Comments Unclassified Drug Swelling Low 02/02/2009 melons Medications FLUTICASONE 50 MCG/ACTUATION NASAL SPRAY, SUSP 2 sprays each nostril daily 1.00 1 7 Active fluticasone-mony meterol (ADVAIR DISKUS) 100-50 mcg/Dose Inhalation DsDvIndications :Unspecified asthma(493.90) Take 1 Puff by inhalation 2 times daily. 1 Inhaler 11 9 Active albuterol (PROVENTIL,VENT GERA) 5 mg/mL Inhalation Nebu Take 0.25 mL by inhalation every 6 hours as needed. 1 Bottle 3 9 Active fexofenadine (CLIF) 180 mg Oral Tab Take 1 Tab by mouth daily. 30 Tab 5 9 Active sertraline (ZOLOFT) 100 mg tablet Take 150 mg by mouth daily. Active predniSONE (DELTASONE) 10 mg tablet Starting 09/24 Take 6 tablets by mouth daily for 3 days, then 5 tablets daily for 3 days, then 4 tablets daily for 3 days, then 3 tablets daily for 3 days, then 2 tablets daily for 3 days, then 1 tablet daily for 3 days, then 1/2 tablet daily for the remainder 65 Tablet 09/23/2021 3:20 PM CDT 2 Active dextromethorpha n-guaiFENesin 60-1,200 mg Tablet Sustained Release 12HR Take 60-1,200 mg by mouth 2 times daily as needed for cough. 20 Tablet 2 Active chlorpheniramin e-HYDROcodone (TUSSIONEX) 8-10 mg/5 mL Suspension, Sust. Release 12HRIndications :Mild persistent asthma with exacerbation,Rh inovirus Take 5 mL by mouth every 12 hours as needed for Cough. Max Daily Amount: 10 mL 70 mL 09/23/2021 3:20 PM CDT 2 Active benzocaine-ment hol-cetylpyridi um (Cepacol Sore Throat, anthony-men,) 15-3.6 mg Lozenge Take 1 Each by Mouth/Throat route every 2 hours as needed for Pain. 18 Each 09/23/2021 3:20 PM CDT 2 Active Active Problems Problem Noted Date Diagnosed Date Rhinovirus 09/20/2021 Anxiety state 09/20/2021 Steroid-induced hyperglycemia 09/20/2021 02/06/18 02/06/2018 EIL, pit, GBS neg, A- 11/05/2015 Enlargement of lymph nodes 05/16/2007 Allergic rhinitis, cause unspecified 05/16/2007 Other malaise and fatigue 05/08/2006 Exacerbation of asthma Resolved Problems Problem Noted Date Diagnosed Date Resolved Date Encounter for induction of labor 02/05/2018 02/06/2018 Abnormal weight gain 05/16/2007 022 Acute sinusitis, unspecified 08/14/2006 09/20/2021 Unspecified asthma(493.90) 05/08/2006 0 09/20/2021 Candidiasis of vulva and vagina 05/08/2006 09/20/2021 Immunizations Immunization Administration Dates Next Due (INFANRIX)(6 WKS-6 YRS) DIPT HERIA, TETANUS TOXOIDS, AND ACCELLULAR PERTUSSIS VACCINE (DTAP), 0.5 ML IM 01/22/2018 Influenza Seasonal Unspecified Formulation IM Family History Medical History Relation Name Comments Heart Disease Father Other Father Healthy Mother Relation Name Status Comments Father Alive Mother Alive Social History Tobacco Use Types Packs/Day Years Used Date Smoking Tobacco: Never Smokeless Tobacco: Never Alcohol Use Standard Drinks/Week Comments No 0 (1 standard drink = 0.6 oz pur e alcohol) Comments No Sex and Gender Information Value Date Recorded Sex Assigned at Not on file 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 Gender Identity Not on file Sexual Orientation Not on file Last Filed Vital Signs Vital Sign Reading Time Taken Comments Blood Pressure 145/95 09/23/2021 12:10 PM CDT Pulse 72 09/23/2021 3:22 PM CDT Temperature 36.8 C (98.2 F) 09/23/2021 12:10 PM CDT Respiratory Rate 20 09/23/2021 3:22 PM CDT Oxygen Saturation 98% 09/23/2021 3:22 PM CDT Inhaled Oxygen Concentration - - Weight 111.8 kg (246 lb 6.4 oz) 09/21/2021 2:14 PM CDT Height 162.6 cm (5' 4 ) 09/21/2021 2:14 PM CDT Body Mass Index 42.29 09/21/2021 2:14 PM CDT Plan of Treatment Health Maintenance Due Date Last Done Comments HEPATITIS B VACCINES (1 of 3 - 19+ 3-dose series) 01/18/2004 CERVICAL CANCER SCREENING 2015 09/30/2007 INFLUENZA VACCINE (#1) 2023 01/22/2018 DTAP/TDAP/TD VACCINES (2 - Tdap) 01/23/2028 01/23/20 18 HPV VACCINES Aged Out No longer eligi ble based on patient's age to complete this topic Insurance [facility] BLUE ACCESS/TRUE BLUE [place] [address] [place] [place] [address] RX [employer] Commercial RX [employer] Express Advance Directives For more information, please contact: [phone] * Full Code (Latest Code Status on File) Date Activated Date Inactivated Comments 09/20/2021 3:26 PM 09/23/2021 6:47 PM * Full Code Date Activated Date Inactivated Comments 09/20/2021 7:03 AM 09/20/2021 3:26 PM * Full Code Date Activated Date Inactivated Comments 02/06/2018 12:04 PM 02/08/2018 1:32 PM * Full Code Date Activated Date Inactivated Comments 02/05/2018 10:00 PM 02/06/2018 12:03 PM * Full Code Date Activated Date Inactivated Comments 11/05/2015 2:01 PM 11/07/2015 1:31 PM Care Teams Cat Scan Technologist Relationship Specialty Start Date End Date Andre Lopez MD [address] [place] [address] PCP - General Family Practice 10/30/15
--- OUTSIDE RECORDS SUMMARY | 2024-07-16 08:45 | XMS_ITS | Encounter Summary ---
Author Organization [facility] Address 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 Gender Identity Not on file Sexual Orientation Not on file documented as of this encounter Plan of Treatment Not on file documented as of this encounter Visit Diagnoses Diagnosis Sprain of neck- Primary documented in this encounter Additional Health Concerns Infection Onset Date Last Indicated Resolved Time R/O Respiratory 09/19/2021 09/19/2021 09/19/2021 8 :47 PM CDT RHINO/ENTEROVIRUS (Adult) 09/19/2021 09/19/2021 1:16 AM CDT documented as of this encounter Care Teams Manager Of Case Management Relationship Specialty Start Date End Date Andre Lopez MD [address] [place] [address] PCP - General Family Practice 10/30/15 documented as of this encounter
--- OUTSIDE RECORDS SUMMARY | 2024-07-16 08:45 | XMS_ITS | Encounter Summary ---
Author Organization [facility] Address 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 Gender Identity Not on file Sexual Orientation Not on file documented as of this encounter Plan of Treatment Not on file documented as of this encounter Visit Diagnoses Diagnosis Open wound of forehead, without mention of complication- Primary documented in this encounter Additional Health Concerns Infection Onset Date Last Indicated Resolved Time R/O Respiratory 09/19/2021 09/19/2021 09/19/2021 8 :47 PM CDT RHINO/ENTEROVIRUS (Adult) 09/19/2021 09/19/2021 1:16 AM CDT documented as of this encounter Care Teams Elementary Secretary Relationship Specialty Start Date End Date Andre Lopez MD [address] [place] [address] PCP - General Family Practice 10/30/15 documented as of this encounter
--- OUTSIDE RECORDS SUMMARY | 2024-07-16 08:45 | XMS_ITS | Encounter Summary ---
Author Organization [facility] Address 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
--- OUTSIDE RECORDS SUMMARY | 2024-07-16 08:45 | XMS_ITS | Encounter Summary ---
Author Organization [facility] Address 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 Gender Identity Not on file Sexual Orientation Not on file documented as of this encounter Plan of Treatment Not on file documented as of this encounter Procedures Procedure Name Priority Date/Time Associated Diagnosis Comments XR KNEE 4+ VW LEFT Routine 09/22/2008 12 :45 AM CDT documented in this encounter Results * XR KNEE 4+ VW LEFT (09/22/2008 12:45 AM CDT) Anatomical Region Laterality Modality Lower Extremity Other 09/22/2008 12:4 5 AM CDT Narrative 09/22/2008 12:19 PM CDT [facility] [address] [address] Admit Date: 09/22/2008 EBONI RAMIREZ Sex: F Admit Prov: ER, AUTHORIZED P Date: 1985 Primary Care Prov: PCP, NONE; LESLIE LLOYDN: [phone] MONCHO Lara N: [id number] Room: [facility] Ordering Prov: N/A Accession Number: [id number] Interpretation CLINICAL INDICATION: 23-year-old woman with pain and swelling. REPORT: AP, LATERAL, NOTCH, SUNRISE VIEWS OF THE LEFT KNEE DATED 09/22/2008 COMPARISON: None. FINDINGS: Bone mineralization and alignment are within normal limits. There is no acute fracture or dislocation. No large suprapatellar effusion is seen. Joint spaces are within normal limits. IMPRESSION: No acute fracture. . Dictated by: BRANDON HOBSON 09/22/2008 11:25 Electronically signed by: BRANDON HOBSON 09/22/2008 12:17 Transcribed: 09/22/2008 11:30 DKT Procedure Note Brandon Hobson - 09/22/[address] [address] Admit Date: 09/22/2008 EBONI RAMIREZ Sex: F Admit Prov: ER, AUTHORIZED P Date: 1985 Primary Care Prov: PCP, NONE; RENEE LLOYD: [phone] MONCHO Lara N: [id number] Room: [facility] Ordering Prov: N/A Interpretation CLINICAL INDICATION: 23-year-old woman with pain and swelling. REPORT: AP, LATERAL, NOTCH, SUNRISE VIEWS OF THE LEFT KNEE DATED09/22/2008 COMPARISON: None. FINDINGS: Bone mineralization and alignment are within normal limits.There is no acute fracture or dislocation. No large suprapatellar effusionis seen. Joint spaces are within normal limits. IMPRESSION: No acute fracture. . Dictated by: BRANDON HOBSON 09/22/2008 11:25 Electronically signed by: BRANDON HOBSON 09/22/2008 12:17 Transcribed: 09/22/2008 11:30 DKT us Authorized P Er DIAGNOSTIC IMAGING ORDERABLES Fi nal Result documented in this encounter Visit Diagnoses Not on filedocumented in this encounter Additional Health Concerns Infection Onset Date Last Indicated Resolved Time R/O Respiratory 09/19/2021 09/19/2021 09/19/2021 8 :47 PM CDT RHINO/ENTEROVIRUS (Adult) 09/19/2021 09/19/2021 1:16 AM CDT documented as of this encounter Care Teams Asbestos Shingle Inspector Relationship Specialty Start Date End Date Andre Lopez MD [address] [place] [address] PCP - General Family Practice 10/30/15 documented as of this encounter
--- OUTSIDE RECORDS SUMMARY | 2024-07-16 08:45 | XMS_ITS | Encounter Summary ---
Author Organization [employer] Address 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
--- OUTSIDE RECORDS SUMMARY | 2024-07-16 08:45 | XMS_ITS | Encounter Summary ---
Author Organization [employer] Address 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 Gender Identity Not on file Sexual Orientation Not on file documented as of this encounter Plan of Treatment Not on file documented as of this encounter Procedures Procedure Name Priority Date/Time Associated Diagnosis Comments CBC WITH DIFFERENTIAL Routine 04/20/2005 10:39 PM MASTER POLICE DETECTIVE CBC WITH DIFFERENTIAL Routine 04/20/2005 10:39 PM MASTER POLICE DETECTIVE C-REACTIVE PROTEIN Routine 04/20/2005 10 :39 PM MASTER POLICE DETECTIVE documented in this encounter Results * (ABNORMAL) CBC WITH DIFFERENTIAL (04/20/2005 10:39 PM MASTER POLICE DETECTIVE) Pathologist [facility] NEUTROPHILS 92(H) 45 - 70 % INTERFAC E SYSTEM LYMPHOCYTES 6(L) 16 - 45 % INTERFAC E SYSTEM MONOCYTES 2(L) 3 - 13 % INTERFACE SYSTEM EOSINOPHILS 0 0 - 7 % INTERFAC E SYSTEM BASOPHILS 0 0 - 2 % INTERFACE SYSTEM NEUTROPHIL ABSOLUTE 15.04(H) 1.90 - 7.00 K/uL INTERFACE SYSTEM LYMPHOCYTE ABSOLUTE 1.00 0.70 - 4.50 K/uL INTERFACE SYSTEM MONOCYTE ABSOLUTE 0.24 0.10 - 1.30 K/uL INTERFACE SYSTEM EOSINOPHIL ABSOLUTE 0.02 0.00 - 0.70 K/uL INTERFACE SYSTEM BASOPHILS ABSOLUTE 0.02 0.00 - 0.20 K/uL INTERFACE SYSTEM 04/20/2005 10:3 9 PM MASTER POLICE DETECTIVE us Margarito Griggs MD HEMATOLOGY ORDERABLES Final Result Performing Organization Address [facility] de Phone Number INTERFACE SYSTEM Refer to clinic/hospital department * (ABNORMAL) CBC WITH DIFFERENTIAL (04/20/2005 10:39 PM MASTER POLICE DETECTIVE) Pathologist [facility] WBC 16.3(H) 4.0 - 9.8 K/uL INTERFACE SYSTEM RBC 4.90 3.90 - 4.90 M/uL INTERFACE SYSTEM HEMOGLOBIN 15.9(H) 11.8 - 14.8 g/dL INTERFACE SYSTEM HEMATOCRIT 45.5(H) 35.5 - 44.0 % INTERFACE SYSTEM MCV 92.9 82.0 - 99.0 fL INTERFACE SYSTEM MCH 32.4 27.2 - 32.6 pg INTERFACE SYSTEM MCHC 34.9 31.5 - 35.5 % INTERFACE SYSTEM RDW 11.9 11.5 - 14.5 % INTERFACE SYSTEM RDW-STDEV 40.3 37.1 - 48.7 fL INTERFACE SYSTEM PLATELETS 252 140 - 350 K/uL INTERFACE SYSTEM MPV 9.4 9.3 - 12.4 fL INTERFACE SYSTEM 04/20/2005 10:3 9 PM MASTER POLICE DETECTIVE us Margarito Griggs MD HEMATOLOGY ORDERABLES Final Result Performing Organization Address [facility] de Phone Number INTERFACE SYSTEM Refer to clinic/hospital department * C-REACTIVE PROTEIN (04/20/2005 10:39 PM MASTER POLICE DETECTIVE) CRP <0.5 0.0 - 0.8 mg/dL INTERFACE SYSTEM 04/20/2005 10:3 9 PM MASTER POLICE DETECTIVE us Margarito Griggs MD CHEMISTRY ORDERABLES Final R esult INTERFACE SYSTEM Refer to clinic/hospital department documented in this encounter Visit Diagnoses Diagnosis Pain in joint, ankle and foot- Primary documented in this encounter Additional Health Concerns Infection Onset Date Last Indicated Resolved Time R/O Respiratory 09/19/2021 09/19/2021 09/19/2021 8 :47 PM CDT RHINO/ENTEROVIRUS (Adult) 09/19/2021 09/19/2021 1:16 AM CDT documented as of this encounter Care Teams Dat Instructor Relationship Specialty Start Date End Date Andre Lopez MD [address] [place] [address] PCP - General Family Practice 10/30/15 documented as of this encounter
--- OUTSIDE RECORDS SUMMARY | 2024-07-16 08:45 | XMS_ITS | Encounter Summary ---
Author Organization [facility] Address [address] [place] [address] Care Team Providers Care Home Health Care Case Manager Name Role Phone Andre Lopez MD Primary Care Provider [phone] Encounter Details Date Type Department Care Team (Late st Contact Info) Description 05/16/2007 Outpatient Historical [facility] Family Medicine [facility] [address] [place] [address] Dionne Anderson MD NO ADDRESS ON FILE Social History Tobacco Use Types Packs/Day Years Used Date Smoking Tobacco: Never Assessed Comments Unknown Sex and Gender Information Value Date Recorded Sex Assigned at Not on file Legal Sex Female 2:59 AM SUPERVISOR COAL HANDLING Gender Identity Not on file Sexual Orientation Not on file documented as of this encounter Last Filed Vital Signs Vital Sign Reading Time Taken Comments Blood Pressure 987/4 05/16/2007 2:00 PM SUPERVISOR COAL HANDLING Pulse 62 05/16/2007 2:00 PM SUPERVISOR COAL HANDLING Temperature 36.9 C (98.4 F) 05/16/2007 2:00 PM SUPERVISOR COAL HANDLING Respiratory Rate - - Oxygen Saturation - - Inhaled Oxygen Concentration - - Weight 95.7 kg (211 lb) 05/16/2007 2:00 PM SUPERVISOR COAL HANDLING Height - - Body Mass Index - [...] documented as of this encounter Care Teams Home Health Care Case Manager Relationship Specialty Start Date End Date Andre Lopez MD [address] [place] [address] PCP - General Family Practice 10/30/15 documented as of this encounter
--- OUTSIDE RECORDS SUMMARY | 2024-07-16 08:45 | XMS_ITS | Encounter Summary ---
Author Organization [employer] Address 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 Sex Female 2:59 AM 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 Gender Identity Not on file Sexual Orientation Not on file documented as of this encounter Plan of Treatment Not on file documented as of this encounter Visit Diagnoses Diagnosis Cellulitis and abscess of leg, except foot- Primary documented in this encounter Additional Health Concerns Infection Onset Date Last Indicated Resolved Time R/O Respiratory 09/19/2021 09/19/2021 09/19/2021 8 :47 PM CDT RHINO/ENTEROVIRUS (Adult) 09/19/2021 09/19/2021 1:16 AM CDT documented as of this encounter Care Teams Process Safety Engineering Technologist Relationship Specialty Start Date End Date Andre Lopez MD [address] [place] [address] PCP - General Family Practice 10/30/15 documented as of this encounter
--- OUTSIDE RECORDS SUMMARY | 2024-07-16 08:45 | XMS_ITS | Encounter Summary ---
Author Organization [employer] Address [address] [place] [address] Care Team Providers Care Lead Atg Developer Name Role Phone Andre Lopez MD Primary Care Provider Encounter Details Date Type Department Care Team (Late st Contact Info) Description 10/23/2005 Inpatient Historical [facility] [place] [address] [address] [place] [address] Cellulitis and Abscess of Leg, except Foot (Primary Dx) Social History Tobacco Use Types Packs/Day Years Used Date Smoking Tobacco: Never Assessed Comments Unknown Sex and Gender Information Value Date Recorded Sex Assigned at Not on file 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 Gender Identity Not on file Sexual Orientation Not on file documented as of this encounter Plan of Treatment Not on file documented as of this encounter Procedures Procedure Name Priority Date/Time Associated Diagnosis Comments VANCOMYCIN LEVEL TROUGH Routine 10/26/2005 1:29 PM CDT COMPLEMENT C3 Routine 10/25/2005 7:26 AM CDT IGE Routine 10/25/2005 7:26 AM CDT IGA Routine 10/25/2005 7:26 AM CDT IGM Routine 10/25/2005 7:26 AM CDT IGG Routine 10/25/2005 7:26 AM CDT C-REACTIVE PROTEIN Routine 10/24/2005 1: 43 PM CDT HEPATIC FUNCTION PANEL Routine 10/24/2005 1:43 PM CDT BASIC METABOLIC PANEL Routine 10/24/2005 1:43 PM CDT HCG QUANTITATIVE, BLOOD Routine 10/24/2005 1:00 PM CDT CBC WITH DIFFERENTIAL Routine 10/23/2005 3:40 PM CDT CBC WITH DIFFERENTIAL Routine 10/23/2005 3:40 PM CDT documented in this encounter Results * VANCOMYCIN LEVEL TROUGH (10/26/2005 1:29 PM CDT) VANCOMYCIN, TROUGH 8.8 5.0 - 15.0 ug/mL INTERFACE SYSTEM Comment: Vancomycin Trough Toxic Level= >15.0 ug/mL 10/26/2005 1:29 PM CDT us Smita Beatty CHEMISTRY ORDERABLES Final Re sult INTERFACE SYSTEM Refer to clinic/hospital department * COMPLEMENT C3 (10/25/2005 7:26 AM CDT) COMPLEMENT C3 160 90 - 180 mg/dL INTERFACE SYSTEM Comment: [facility] [id number] [place] [id number] HAILEY RAMOS MD 10/25/2005 7:26 AM CDT us Jose Avery MD CHEMISTRY ORDERABLES Final Result INTERFACE SYSTEM Refer to clinic/hospital department * IGE (10/25/2005 7:26 AM CDT) IGE 92 <IF=707 kU/L INTERFACE SYSTEM Comment: [facility] performed [facility]: [facility] [id number] [place] [id number] HAILEY RAMOS MD 10/25/2005 7:26 AM CDT us Jose Avery MD CHEMISTRY ORDERABLES Final Result Performing Organization Address City/State/[facility] Co de Phone Number INTERFACE SYSTEM Refer to clinic/hospital department * IGG (10/25/2005 7:26 AM CDT) IGG 900 724 - 1501 mg/dL INTERFACE SYSTEM 10/25/2005 7:26 AM CDT Jose Avery MD CHEMISTRY ORDERABLES Final Result Performing Organization Address City/[facility] de Phone Number INTERFACE SYSTEM Refer to clinic/hospital department * IGM (10/25/2005 7:26 AM CDT) IGM 126.4 60.0 - 292.0 mg/dL INTERFACE SYSTEM 10/25/2005 7:26 AM CDT Jose Avery MD CHEMISTRY ORDERABLES Final Result Performing Organization Address City/[facility] Co de Phone Number INTERFACE SYSTEM Refer to clinic/hospital department * IGA (10/25/2005 7:26 AM CDT) IGA 136.6 83.0 - 336.0 mg/dL INTERFACE SYSTEM 10/25/2005 7:26 AM CDT Jose Avery MD CHEMISTRY ORDERABLES Final Result Performing Organization Address City/State/[facility] Co de Phone Number INTERFACE SYSTEM Refer to clinic/hospital department * (ABNORMAL) C-REACTIVE PROTEIN (10/24/2005 1:43 PM CDT) CRP 8.0(H) 0.0 - 0.8 mg/dL INTERFACE SYSTEM 10/24/2005 1:43 PM CDT [employer] Beatty CHEMISTRY ORDERABLES Final Re sult Performing Organization Address City/[facility] Co ks Phone Number INTERFACE SYSTEM Refer to clinic/hospital department * BASIC METABOLIC PANEL (10/24/2005 1:43 PM CDT) GLUCOSE 79 65 - 99 mg/dL INTERFACE SYSTEM Comment:Note: Effective September 13, 2005, reference range now reflects a fasting st ate. CREATININE 0.9 0.4 - 1.2 mg/dL INTERFACE SYSTEM CALCIUM 9.0 8.6 - 10.2 mg/dL INTERFACE SYSTEM BUN 10 6 - 20 mg/dL INTERFACE SYSTEM SODIUM 140 135 - 145 mmol/L INTERFACE SYSTEM POTASSIUM 3.8 3.5 - 4.9 mmol/L INTERFACE SYSTEM CHLORIDE 103 96 - 108 mmol/L INTERFACE SYSTEM CO2 28 22 - 30 mmol/L INTERFACE SYSTEM 10/24/2005 1:43 PM CDT [employer] Beatty CHEMISTRY ORDERABLES Final Re sult Performing Organization Address [facility] Phone Number INTERFACE SYSTEM Refer to clinic/hospital department * HEPATIC FUNCTION PANEL (10/24/2005 1:43 PM CDT) ALKALINE PHOSPHATASE 56 35 - 104 U/L INTERFACE SYSTEM AST 17 12 - 32 U/L INTERFACE SYSTEM ALT 11 0 - 31 U/L INTERFACE SYSTEM TOTAL PROTEIN 7.6 6.3 - 8.6 g/dL INTERFACE SYSTEM ALBUMIN 4.2 3.4 - 4.8 g/dL INTERFACE SYSTEM BILIRUBIN TOTAL 0.2 0.2 - 1.0 mg/dL INTERFACE SYSTEM BILIRUBIN DIRECT 0.1 0.0 - 0.3 mg/dL INTERFACE SYSTEM 10/24/2005 1:43 PM CDT [employer] Beatty CHEMISTRY ORDERABLES Final Re sult INTERFACE SYSTEM Refer to clinic/hospital department * HCG QUANTITATIVE, BLOOD (10/24/2005 1:00 PM CDT) HCG QUANT, BLOOD <5 0 - 5 mIU/mL INTERFACE SYSTEM Comment: Result of 5 - 25 mIU/mL is indeterminant for , repeat of test recommemded in 48 hours. Reference Range: Gestational Age: 3 Weeks 5.8 - 71.2 mIU/mL 4 Weeks 9.5 - 750 mIU/mL 5 Weeks 217 - 7138 mIU/mL 6 Weeks 158 - 31,795 mIU/mL 7 Weeks 3697 - 163,563 mIU/mL 8 Weeks 32,065 - 149,571 mIU/mL 9 Weeks 63,803 - 151,410 mIU/mL 10 Weeks 46,509 - 186,977 mIU/mL 12 Weeks 27,832 - 210,612 mIU/mL 14 Weeks 13,950 - 62,530 mIU/mL 15 Weeks 12,039 - 70,971 mIU/mL 16 Weeks 9040 - 56,451 mIU/mL 17 Weeks 8175 - 55,868 mIU/mL 18 Weeks 8099 - 58,176 mIU/mL Heterophile antibodies and other interfering substances in the serum of some patients may cause a false-positive result in this assay. Before making a diagnosis of malignancy or etopic ,the result of this test should be confirmed with a urine HCG test and correlated with other clinical evidence. 10/24/2005 1:00 PM CDT us Smita Beatty CHEMISTRY ORDERABLES Final Re sult INTERFACE SYSTEM Refer to clinic/hospital department * CBC WITH DIFFERENTIAL (10/23/2005 3:40 PM CDT) Pathologist [facility] NEUTROPHILS 70 45 - 70 % INTERFAC E SYSTEM LYMPHOCYTES 19 16 - 45 % INTERFAC E SYSTEM MONOCYTES 7 3 - 13 % INTERFACE SYSTEM EOSINOPHILS 4 0 - 7 % INTERFAC E SYSTEM BASOPHILS 0 0 - 2 % INTERFACE SYSTEM NEUTROPHIL ABSOLUTE 5.84 1.90 - 7.00 K/uL INTERFACE SYSTEM LYMPHOCYTE ABSOLUTE 1.53 0.70 - 4.50 K/uL INTERFACE SYSTEM MONOCYTE ABSOLUTE 0.56 0.10 - 1.30 K/uL INTERFACE SYSTEM EOSINOPHIL ABSOLUTE 0.33 0.00 - 0.70 K/uL INTERFACE SYSTEM BASOPHILS ABSOLUTE 0.03 0.00 - 0.20 K/uL INTERFACE SYSTEM 10/23/2005 3:40 PM CDT Champ Li MD HEMATOLOGY ORDERABLES Final Result Performing Organization Address [facility] Phone Number INTERFACE SYSTEM Refer to clinic/hospital department * CBC WITH DIFFERENTIAL (10/23/2005 3:40 PM CDT) WBC 8.3 4.0 - 9.8 K/uL INTERFACE SYSTEM RBC 4.27 3.90 - 4.90 M/uL INTERFACE SYSTEM HEMOGLOBIN 13.2 11.8 - 14.8 g/dL INTERFACE SYSTEM HEMATOCRIT 39.5 35.5 - 44.0 % INTERFACE SYSTEM MCV 92.5 82.0 - 99.0 fL INTERFACE SYSTEM MCH 30.9 27.2 - 32.6 pg INTERFACE SYSTEM MCHC 33.4 31.5 - 35.5 % INTERFACE SYSTEM RDW 12.4 11.5 - 14.5 % INTERFACE SYSTEM RDW-STDEV 42.1 37.1 - 48.7 fL INTERFACE SYSTEM PLATELETS 255 140 - 350 K/uL INTERFACE SYSTEM MPV 9.5 9.3 - 12.4 fL INTERFACE SYSTEM 10/23/2005 3:40 PM CDT Champ Li MD HEMATOLOGY ORDERABLES Final Result Performing Organization Address [facility] Phone Number INTERFACE SYSTEM Refer to clinic/hospital department documented in this encounter Visit Diagnoses Diagnosis Cellulitis and abscess of leg, except foot- Primary documented in this encounter Additional Health Concerns Infection Onset Date Last Indicated Resolved Time R/O Respiratory 09/19/2021 09/19/2021 09/19/2021 8 :47 PM CDT RHINO/ENTEROVIRUS (Adult) 09/19/2021 09/19/2021 1:16 AM CDT documented as of this encounter Care Teams Lead Atg Developer Relationship Specialty Start Date End Date Andre Lopez MD [address] [place] [address] PCP - General Family Practice 10/30/15 documented as of this encounter
--- OUTSIDE RECORDS SUMMARY | 2024-07-16 08:45 | XMS_ITS | Encounter Summary ---
Author Organization [employer] Address 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 Gender Identity Not on file Sexual Orientation Not on file documented as of this encounter Plan of Treatment Not on file documented as of this encounter Visit Diagnoses Diagnosis Unspecified asthma(493.90)- Primary Unspecified asthma documented in this encounter Additional Health Concerns Infection Onset Date Last Indicated Resolved Time R/O Respiratory 09/19/2021 09/19/2021 09/19/2021 8 :47 PM CDT RHINO/ENTEROVIRUS (Adult) 09/19/2021 09/19/2021 1:16 AM CDT documented as of this encounter Care Teams Paleontological Helper Relationship Specialty Start Date End Date Andre Lopez MD [address] [place] [address] PCP - General Family Practice 10/30/15 documented as of this encounter
--- OUTSIDE RECORDS SUMMARY | 2024-07-16 08:45 | XMS_ITS | Encounter Summary ---
Author Organization [facility] Address [address] [place] [address] Care Team Providers Care Loft Worker Pile Driving Name Role Phone Andre Lopez MD Primary Care Provider [phone] Encounter Details Date Type Department Care Team (Latest Contact Info) Description 06/17/2007 Outpatient Historical [facility] Family Medicine [facility] [address] [place] [address] [place] [address] [place] [address] Enlargement of Lymph Nodes Social History Tobacco Use Types Packs/Day Years Used Date Smoking Tobacco: Never Assessed Comments Unknown Sex and Gender Information Value Date Recorded Sex Assigned at Not on file Legal Sex Female 2:59 AM NEON MOLDER Gender Identity Not on file Sexual Orientation Not on file documented as of this encounter Plan of Treatment Not on file documented as of this encounter Visit Diagnoses Diagnosis Enlargement of lymph nodes documented in this encounter Additional Health Concerns Infection Onset Date Last Indicated Resolved Time R/O Respiratory 09/19/2021 09/19/2021 09/19/2021 8 :47 PM CDT RHINO/ENTEROVIRUS (Adult) 09/19/2021 09/19/2021 1:16 AM CDT documented as of this encounter Care Teams Loft Worker Pile Driving Relationship Specialty Start Date End Date Andre Lopez MD [address] [place] [address] PCP - General Family Practice 10/30/15 documented as of this encounter
--- OUTSIDE RECORDS SUMMARY | 2024-07-16 08:45 | XMS_ITS | Encounter Summary ---
Author Organization [facility] Address [address] [place] [address] Care Team Providers Care Cardiovascular Physician Assistant Name Role Phone Andre Lopez MD Primary Care Provider Encounter Details Date Type Department Care Team (Latest Contact Info) Description 05/16/2007 Outpatient Historical [facility] Family Medicine [facility] [address] [address] [place] [address] [place] [address] [place] [address] Enlargement of Lymph Nodes Social History Tobacco Use Types Packs/Day Years Used Date Smoking Tobacco: Never Assessed Comments Unknown Sex and Gender Information Value Date Recorded Sex Assigned at Not on file Legal Sex Female 2:59 AM TESTER WAFER SUBSTRATE Gender Identity Not on file Sexual Orientation Not on file documented as of this encounter Plan of Treatment Not on file documented as of this encounter Procedures Procedure Name Priority Date/Time Associated Diagnosis Comments TSH WITH REFLEX FT4 AND FT3 Routine 05/18/2007 9:54 AM TESTER WAFER SUBSTRATE GLUCOSE FASTING Routine 05/18/2007 9:54 AM TESTER WAFER SUBSTRATE LIPID PANEL Routine 05/18/2007 9:54 AM TESTER WAFER SUBSTRATE MONONUCLEOSIS SCREEN W/REFLEX EBV IGM AB Routine 05/16/2007 3:13 PM TESTER WAFER SUBSTRATE EBV IGM, VCA Routine 05/16/2007 3:13 PM TESTER WAFER SUBSTRATE documented in this encounter Results * TSH WITH REFLEX FT4 AND FT3 (05/18/2007 9:54 AM TESTER WAFER SUBSTRATE) TSH 1.74 0.27 - 4.20 uU/mL INTERFACE SYSTEM 05/18/2007 9:54 AM TESTER WAFER SUBSTRATE us Wei Chaidez MD CHEMISTRY ORDERABLES Edited Performing Organization Address [facility] de Phone Number INTERFACE SYSTEM Refer to clinic/hospital department * GLUCOSE FASTING (05/18/2007 9:54 AM TESTER WAFER SUBSTRATE) GLUCOSE FASTING 91 65 - 99 mg/dL INTERFACE SYSTEM 05/18/2007 9:54 AM TESTER WAFER SUBSTRATE us Wei Chaidez MD CHEMISTRY ORDERABLES Edited Performing Organization Address [facility] de Phone Number INTERFACE SYSTEM Refer to clinic/hospital department * (ABNORMAL) LIPID PANEL (05/18/2007 9:54 AM TESTER WAFER SUBSTRATE) CHOLESTEROL 203(H) 100 - 199 mg/dL INTERFACE SYSTEM TRIGLYCERIDE 113 10 - 149 mg/dL INTERFACE SYSTEM HDL 57 40 - 59 mg/dL INTERFACE SYSTEM CHOL/HDL RATIO 3.6 2.0 - 5.0 INTER FACE SYSTEM LDL CALCULATED 123(H) <=99 mg/dL INTERFACE SYSTEM LIPID PANEL COMMENT See Below INTERFACE SYSTEM Comment: The adult ATP and pediatric NCEP classifications for lipids are available on the [facility] Intranet at: [email or web address] [email or web address] healthcare - perry [email or web address] Select: Lab Policies and Procedures,Current Select: Lipid Panel Interpretation 05/18/2007 9:54 AM TESTER WAFER SUBSTRATE us Wei Chaidez MD CHEMISTRY ORDERABLES Edited Performing Organization Address City/[facility]/ZIP Co de Phone Number INTERFACE SYSTEM Refer to clinic/hospital department * EBV IGM, VCA (05/16/2007 3:13 PM TESTER WAFER SUBSTRATE) EBV IGM, VCA < OR = 0.90 EIA Value INTERFACE SYSTEM Comment: EIA VALUE INTERPRETATION < OR = 0.90 NEGATIVE - NO ANTIBODY DETECTED 0.91 - 1.09 EQUIVOCAL > OR = 1.10 POSITIVE - ANTIBODY DETECTED A POSITIVE RESULT IS INDICATIVE OF IGM ANTIBODY TO EBV VCA. THE CLINICAL DIAGNOSIS MUST BE INTERPRETED IN CONJUNCTION WITH THE CLINICAL SIGNS AND SYMPTOMS OF THE PATIENT. Lab test performed by: [facility] [address] [place] [address] MARILY BRAND MD 05/16/2007 3:13 PM TESTER WAFER SUBSTRATE us Wei Chaidez MD CHEMISTRY ORDERABLES COM Edited Performing Organization Address [facility] Phone Number INTERFACE SYSTEM Refer to clinic/hospital department * MONONUCLEOSIS SCREEN W/REFLEX EBV IGM AB (05/16/2007 3:13 PM TESTER WAFER SUBSTRATE) MONONUCLEOSIS SCREEN Negative Negative INTERFACE SYSTEM EBV IGM AB REFLEX Sent to Ref. Lab INTERFACE SYSTEM 05/16/2007 3:13 PM TESTER WAFER SUBSTRATE us Wei Chaidez MD HEMATOLOGY ORDERABLES Edited Performing Organization Address [facility] Phone Number INTERFACE SYSTEM Refer to clinic/hospital department documented in this encounter Visit Diagnoses Diagnosis Enlargement of lymph nodes documented in this encounter Additional Health Concerns Infection Onset Date Last Indicated Resolved Time R/O Respiratory 09/19/2021 09/19/2021 09/19/2021 8 :47 PM CDT RHINO/ENTEROVIRUS (Adult) 09/19/2021 09/19/2021 1:16 AM CDT documented as of this encounter Care Teams Cardiovascular Physician Assistant Relationship Specialty Start Date End Date Andre Lopez MD [address] [place] [address] PCP - General Family Practice 10/30/15 documented as of this encounter
--- OUTSIDE RECORDS SUMMARY | 2024-07-16 08:45 | XMS_ITS | Encounter Summary ---
Author Organization [employer] Address [address] [place] [address] Care Team Providers Care Civil Attorney Name Role Phone Andre Lopez MD Primary Care Provider Encounter Details Date Type Department Care Team (Late st Contact Info) Description 09/25/1999 Outpatient Historical [facility] Eric Atkins, Authorized P NO ADDRESS ON FILE Unspecified asthma(493.90) (Primary Dx) Social History Tobacco Use Types Packs/Day Years Used Date Smoking Tobacco: Never Assessed Comments Unknown Sex and Gender Information Value Date Recorded Sex Assigned at Not on file Legal Sex Female 2:59 AM HISTORIAN RESEARCH ASSISTANT Gender Identity Not on file Sexual Orientation [...] documented as of this encounter Care Teams Civil Attorney Relationship Specialty Start Date End Date Andre Lopez MD [address] [place] [address] PCP - General Family Practice 10/30/15 documented as of this encounter
--- OUTSIDE RECORDS SUMMARY | 2024-07-16 08:45 | XMS_ITS | Encounter Summary ---
Author Organization [employer] Address [address] [place] [address] Care Team Providers Care Roofer Metal Name Role Phone Andre Lopez MD Primary Care Provider Encounter Details Date Type Department Care Team (Late st Contact Info) Description 02/03/2003 Outpatient Historical [facility] Dionne Vang, Authorized P NO ADDRESS ON FILE SPRAIN OF ANKLE NOS (Primary Dx) Social History Tobacco Use Types Packs/Day Years Used Date Smoking Tobacco: Never Assessed Comments Unknown Sex and Gender Information Value Date Recorded Sex Assigned at Not on file Legal Sex Female 2:59 AM TRAIN PLANNER Gender Identity Not on file Sexual Orientation [...] documented as of this encounter Care Teams Roofer Metal Relationship Specialty Start Date End Date Andre Lopez MD [address] [place] [address] PCP - General Family Practice 10/30/15 documented as of this encounter
[2024-07-16 13:24] LABS: Basophils Absolute Auto 0.1 K/mm3 (0.0-0.1); Basophils Percent Auto 1.1 % (0.2-1.2); Eosinophils Absolute Auto 0.1 K/mm3 (0-0.3); Hematocrit 47.9 % (37.0-47.0); Hemoglobin 15.3 g/dL (12.0-15.0); Immature Granulocyte Absolute 0.02 K/mm3 (0.00-0.031); Immature Granulocyte Percent A 0.4 % (0-0.5); Lymphocytes Absolute Auto 1.81 K/mm3 (0.9-3.2); Lymphocytes Percent Auto 38.6 % (18.3-44.2); Mean Corpuscular HGB Conc 31.9 g/dl (32-36); Mean Corpuscular Hemoglobin 30.8 pg (26-34); Mean Corpuscular Volume 96.4 fl (80-100); Mean Platelet Volume 8.9 fl (7.4-10.4); Monocytes Absolute Auto 0.2 K/mm3 (0.1-0.6); Monocytes Percent Auto 5.1 % (2.6-8.5); Neutrophils Absolute Auto 2.4 K/mm3 (1.3-6.7); Neutrophils Percent Auto 51.8 % (45.5-73.1); Platelet Count Result 290 k/mm3 (150-375); Red Blood Count 4.97 M/mm3 (4.2-5.4); Red Cell Distribution Width 12.5 % (11.5-14.5); White Blood Count 4.7 K/mm3 (4.5-10.0)
[2024-07-16 13:55] LABS: Alanine Aminotransferase 37 U/L (6-35); Albumin Level 4.4 g/dL (3.5-5.1); Alkaline Phosphatase 65 U/L (38-126); Anion Gap 6 mmol/L (4-12); Aspartate Amino Transferase 43 U/L (14-36); Bilirubin,Total 0.5 mg/dL (0.2-1.3); Blood Urea Nitrogen 16 mg/dL (7-17); Calcium 9.2 mg/dL (8.4-10.2); Carbon Dioxide 33 mmol/L (22-30); Chloride 100 mmol/L (98-107); Cholesterol 236 mg/dL (0-200); Estimated Glomerular Filt Rate 60; Glucose 83 mg/dL (65-110); HDL Direct 61 mg/dL; Potassium 4.9 mmol/L (3.4-5.0); Sodium 139 mmol/L (137-145)
[2024-07-16 14:08] LABS: LDL Cholesterol Direct 128 mg/dL
[2024-07-16 14:09] LABS: Triglycerides 109 mg/dL (<150)
== END 2024-07-16 08:31 | disposition home or self-care (01) ==
LOC: ANHGOSHLAB 08:31
PROVIDERS: PCP Student in an Organized Health Care Education/Training Program; Visit Provider Student in an Organized Health Care Education/Training Program
DX: Z13.220 Encounter for screening for lipoid disorders (principal); Z13.29 Encounter for screening for other suspected endocrine disorder; Z13.0 Encounter for screening for diseases of the blood and blood-forming organs and certain disorders involving the immune mechanism; E66.9 Obesity, unspecified
CPT/HCPCS: 36415; 80053; 80061; 84443; 85025

== ENCOUNTER 2024-12-20 10:02 | Outpatient (CLI) | payer BC, SELFPAY ==
--- OUTSIDE RECORDS SUMMARY | 2024-12-20 10:06 | XMS_ITS | Encounter Summary ---
Author Organization [facility] Address [address] [place] [address] Care Team Providers Care Masonry Contractor Administrator Name Role Phone Andre Lopez MD Primary Care Provider Encounter Details Date Type Department Care Team (Late st Contact Info) Description 05/16/2007 Outpatient Historical [facility] Family Medicine [facility] [address] [address] [place] [address] Dionne Anderson MD NO ADDRESS ON FILE Social History Tobacco Use Types Packs/Day Years Used Date Smoking Tobacco: Never Assessed Comments Unknown Sex and Gender Information Value Date Recorded Sex Assigned at Not on file Legal Sex Female 2:59 AM CONCRETE PIPE MACHINE OPERATOR Gender Identity Not on file Sexual Orientation Not on file documented as of this encounter Last Filed Vital Signs Vital Sign Reading Time Taken Comments Blood Pressure 987/4 05/16/2007 2:00 PM CONCRETE PIPE MACHINE OPERATOR Pulse 62 05/16/2007 2:00 PM CONCRETE PIPE MACHINE OPERATOR Temperature 36.9 C (98.4 F) 05/16/2007 2:00 PM CONCRETE PIPE MACHINE OPERATOR Respiratory Rate - - Oxygen Saturation - - Inhaled Oxygen Concentration - - Weight 95.7 kg (211 lb) 05/16/2007 2:00 PM CONCRETE PIPE MACHINE OPERATOR Height - - Body Mass Index - [...] documented as of this encounter Care Teams Masonry Contractor Administrator Relationship Specialty Start Date End Date Andre Lopez MD [address] [place] [address] PCP - General Family Practice 10/30/15 documented as of this encounter
--- OUTSIDE RECORDS SUMMARY | 2024-12-20 10:06 | XMS_ITS | Encounter Summary ---
Author Organization [facility] Address [address] [place] [address] Attn: Epic Prelude ADT [facility] [place] [address] Care Team Providers Care Value Engineer Name Role Phone Andre Lopez MD Primary Care Provider Encounter Details Date Type Department Care Team (Latest Contact Info) Description 08/14/2006 Orders Only Mayuri Mae MD [address] [facility] [address] [place] [address] Social History Tobacco Use Types Packs/Day Years Used Date Smoking Tobacco: Never Assessed Comments Unknown Sex and Gender Information Value Date Recorded Sex Assigned at Not on file Legal Sex Female 2:59 AM SOLE CEMENTER Gender Identity Not on file Sexual Orientation [...] been using nasal steroid (originally prescribed by stock hanger) ROS: GENERAL: HAS A FEVER, normal activity, [...] documented as of this encounter Care Teams Value Engineer Relationship Specialty Start Date End Date Andre Lopez MD [address] [place] [address] PCP - General Family Practice 10/30/15 documented as of this encounter
--- OUTSIDE RECORDS SUMMARY | 2024-12-20 10:06 | XMS_ITS | Encounter Summary ---
Author Organization [facility] Address [address] [place] [address] Care Team Providers Care Cut Off Machine Operator Name Role Phone Andre Lopez MD Primary Care Provider Encounter Details Date Type Department Care Team (Late st Contact Info) Description 05/08/2006 Outpatient Historical [facility] Family Medicine Tia Aragon [address] [address] [place] [address] [place] [address] [address] [place] [address] Social History Tobacco Use Types Packs/Day Years Used Date Smoking Tobacco: Never Assessed Comments Unknown Sex and Gender Information Value Date Recorded Sex Assigned at Not on file Legal Sex Female 2:59 AM TAR CHASER Gender Identity Not on file Sexual Orientation Not on file documented as of this encounter Last Filed Vital Signs Vital Sign Reading Time Taken Comments Blood Pressure 122/80 05/08/2006 9:00 AM TAR CHASER Pulse 72 05/08/2006 9:00 AM TAR CHASER Temperature - - Respiratory Rate - - Oxygen Saturation - - Inhaled Oxygen Concentration - - Weight 85.3 kg (188 lb) 05/08/2006 9:00 AM TAR CHASER Height - - Body Mass Index - [...] documented as of this encounter Care Teams Cut Off Machine Operator Relationship Specialty Start Date End Date Andre Lopez MD [address] [place] [address] PCP - General Family Practice 10/30/15 documented as of this encounter
--- OUTSIDE RECORDS SUMMARY | 2024-12-20 10:06 | XMS_ITS | Encounter Summary ---
Author Organization [employer] Address [address] [place] [address] Care Team Providers Care Plastic Maker Name Role Phone Andre Lopez MD Primary Care Provider Encounter Details Date Type Department Care Team (Late st Contact Info) Description 06/27/1999 Emergency [facility] Er, Authorized P NO ADDRESS ON FILE Sprain of ankle, unspecified site (Primary Dx) Social History Tobacco Use Types Packs/Day Years Used Date Smoking Tobacco: Never Assessed Comments Unknown Sex and Gender Information Value Date Recorded Sex Assigned at Not on file Legal Sex Female 2:59 AM SALESPERSON WOMEN'S HATS Gender Identity Not on file Sexual Orientation [...] documented as of this encounter Care Teams Plastic Maker Relationship Specialty Start Date End Date Andre Lopez MD [address] [place] [address] PCP - General Family Practice 10/30/15 documented as of this encounter
--- OUTSIDE RECORDS SUMMARY | 2024-12-20 10:06 | XMS_ITS | Encounter Summary ---
Author Organization [facility] Address [address] [place] [address] Care Team Providers Care Refuse Collector Supervisor Name Role Phone Andre Lopez MD Primary Care Provider Encounter Details Date Type Department Care Team (Late st Contact Info) Description 10/24/2005 Outpatient Historical [facility] Supp Svcs Blood Flow [address] [place] [address] Marcel Ferreira MD NO ADDRESS ON FILE Social History Tobacco Use Types Packs/Day Years Used Date Smoking Tobacco: Never Assessed Comments Unknown Sex and Gender Information Value Date Recorded Sex Assigned at Not on file Legal Sex Female 2:59 AM ACID PLANT HELPER Gender Identity Not on file Sexual Orientation [...] documented as of this encounter Care Teams Refuse Collector Supervisor Relationship Specialty Start Date End Date Andre Lopez MD [address] [place] [address] PCP - General Family Practice 10/30/15 documented as of this encounter
--- OUTSIDE RECORDS SUMMARY | 2024-12-20 10:06 | XMS_ITS | Encounter Summary ---
Author Organization [facility] Address [address] [place] [address] Attn: Epic Prelude ADT [facility] [place] [address] Care Team Providers Care Spa Director/Finance Name Role Phone Andre Lopez MD Primary Care Provider Encounter Details Date Type Department Care Team (Latest Contact Info) Description 05/11/2006 Orders Only Mayuri Mae MD [address] [facility] [address] [place] [address] Social History Tobacco Use Types Packs/Day Years Used Date Smoking Tobacco: Never Assessed Comments Unknown Sex and Gender Information Value Date Recorded Sex Assigned at Not on file Legal Sex Female 2:59 AM WELDING MACHINE TENDER Gender Identity Not on file Sexual Orientation Not on file documented as of this encounter Progress Notes * Mayuri Florez - 09/25/2007 11:45 AM CDT TIME:08:04 am PATIENT`S HOME PHONE: PATIENT`S WORK PHONE: PATIENT`S INSURANCE: [employer] WHO TOOK THE CALL: Geni Wright M GENERAL INFORMATION PATIENT STATUS: Established Patient. PCP: Tu. ALTERNATIVE PHONE NUMBER: [phone] WHO CALLED: Patient called. SECTION 1: REQUESTED [...] documented as of this encounter Care Teams Spa Director/Finance Relationship Specialty Start Date End Date Andre Lopez MD [address] [place] [address] PCP - General Family Practice 10/30/15 documented as of this encounter
--- OUTSIDE RECORDS SUMMARY | 2024-12-20 10:06 | XMS_ITS | Encounter Summary ---
Author Organization [facility] Address [address] [place] [address] Attn: Epic [place]rel[place] [address] Care Team Providers Care Hand Binder Cutter Name Role Phone Andre Lopez MD Primary Care Provider [phone] Encounter Details Date Type Department Care Team (Latest Contact Info) Description 05/08/2006 Orders Only Mayuri Mae MD [address] [facility] [address] [place] [address] Social History Tobacco Use Types Packs/Day Years Used Date Smoking Tobacco: Never Assessed Comments Unknown Sex and Gender Information Value Date Recorded Sex Assigned at Not on file Legal Sex Female 2:59 AM DIRECTOR OF WEB MARKETING Gender Identity Not on file Sexual Orientation [...] 04/14/06; pt also reports feeling tired a lot; tries to get involved in extracurricular school activities to motivate herself; I cry sometimes; feels may be worse prior to menstruation [...] smoking history. OCCUPATION: . 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 LAB ORDERS: Order number: [id number] Test Ordered: TSH (REFLEX FREE T4/FREE T3) 1727 TIME PHYSICIAN WITH PATIENT: TOTAL: 25 minutes. REGARDING: Need for HPV vaccine; pt plans to decide and arrange with either MFM or her primary sergeant missile crewman. RETURN VISIT: Patient is to return on [...] documented as of this encounter Care Teams Hand Binder Cutter Relationship Specialty Start Date End Date Andre Lopez MD [address] [place] [address] PCP - General Family Practice 10/30/15 documented as of this encounter
--- OUTSIDE RECORDS SUMMARY | 2024-12-20 10:06 | XMS_ITS | Encounter Summary ---
Author Organization [facility] Address [address] [place] [address] Care Team Providers Care Internal Medicine Nurse Practitioner Name Role Phone Andre Lopez MD Primary Care Provider Encounter Details Date Type Department Care Team (Latest Contact Info) Description 05/16/2007 Outpatient Historical [facility] Family Medicine [facility] [address] [facility] [address] [place] [address] [place] [address] [place] [address] Enlargement of Lymph Nodes Social History Tobacco Use Types Packs/Day Years Used Date Smoking Tobacco: Never Assessed Comments Unknown Sex and Gender Information Value Date Recorded Sex Assigned at Not on file Legal Sex Female 2:59 AM PIERCE AND SHAVE PRESS OPERATOR Gender Identity Not on file Sexual Orientation Not on file documented as of this encounter Plan of Treatment Not on file documented as of this encounter Procedures Procedure Name Priority Date/Time Associated Diagnosis Comments TSH WITH REFLEX FT4 AND FT3 Routine 05/18/2007 9:54 AM PIERCE AND SHAVE PRESS OPERATOR GLUCOSE FASTING Routine 05/18/2007 9:54 AM PIERCE AND SHAVE PRESS OPERATOR LIPID PANEL Routine 05/18/2007 9:54 AM PIERCE AND SHAVE PRESS OPERATOR MONONUCLEOSIS SCREEN W/REFLEX EBV IGM AB Routine 05/16/2007 3:13 PM PIERCE AND SHAVE PRESS OPERATOR EBV IGM, VCA Routine 05/16/2007 3:13 PM PIERCE AND SHAVE PRESS OPERATOR documented in this encounter Results * TSH WITH REFLEX FT4 AND FT3 (05/18/2007 9:54 AM PIERCE AND SHAVE PRESS OPERATOR) TSH 1.74 0.27 - 4.20 uU/mL INTERFACE SYSTEM 05/18/2007 9:54 AM PIERCE AND SHAVE PRESS OPERATOR us Wei Chaidez MD CHEMISTRY ORDERABLES Edited Performing Organization Address [facility] de Phone Number INTERFACE SYSTEM Refer to clinic/hospital department * GLUCOSE FASTING (05/18/2007 9:54 AM PIERCE AND SHAVE PRESS OPERATOR) GLUCOSE FASTING 91 65 - 99 mg/dL INTERFACE SYSTEM 05/18/2007 9:54 AM PIERCE AND SHAVE PRESS OPERATOR us Wei Chaidez MD CHEMISTRY ORDERABLES Edited Performing Organization Address [facility] de Phone Number INTERFACE SYSTEM Refer to clinic/hospital department * (ABNORMAL) LIPID PANEL (05/18/2007 9:54 AM PIERCE AND SHAVE PRESS OPERATOR) CHOLESTEROL 203(H) 100 - 199 mg/dL INTERFACE SYSTEM TRIGLYCERIDE 113 10 - 149 mg/dL INTERFACE SYSTEM HDL 57 40 - 59 mg/dL INTERFACE SYSTEM CHOL/HDL RATIO 3.6 2.0 - 5.0 INTER FACE SYSTEM LDL CALCULATED 123(H) <=99 mg/dL INTERFACE SYSTEM LIPID PANEL COMMENT See Below INTERFACE SYSTEM Comment: The adult ATP and pediatric NCEP classifications for lipids are available on the [facility] Intranet at: [email or web address] Select: Lab Policies and Procedures,Current Select: Lipid Panel Interpretation 05/18/2007 9:54 AM PIERCE AND SHAVE PRESS OPERATOR us Wei Chaidez MD CHEMISTRY ORDERABLES Edited Performing Organization Address City/[facility]/ZIP Co de Phone Number INTERFACE SYSTEM Refer to clinic/hospital department * EBV IGM, VCA (05/16/2007 3:13 PM PIERCE AND SHAVE PRESS OPERATOR) EBV IGM, VCA < OR = 0.90 [...] OF THE PATIENT. Lab test performed by: [facility] [address] [place] [address] MARILY BRAND MD 05/16/2007 3:13 PM PIERCE AND SHAVE PRESS OPERATOR us Wei Chaidez MD CHEMISTRY ORDERABLES COM Edited Performing Organization Address [facility] Phone Number INTERFACE SYSTEM Refer to clinic/hospital department * MONONUCLEOSIS SCREEN W/REFLEX EBV IGM AB (05/16/2007 3:13 PM PIERCE AND SHAVE PRESS OPERATOR) MONONUCLEOSIS SCREEN Negative Negative INTERFACE SYSTEM EBV IGM AB REFLEX Sent to Ref. Lab INTERFACE SYSTEM 05/16/2007 3:13 PM PIERCE AND SHAVE PRESS OPERATOR us Wei Chaidez MD HEMATOLOGY ORDERABLES Edited Performing Organization Address [facility] Phone Number INTERFACE SYSTEM Refer to clinic/hospital department documented in this encounter Visit Diagnoses Diagnosis Enlargement of lymph nodes documented in this encounter Additional Health Concerns Infection Onset Date Last Indicated Resolved Time R/O Respiratory 09/19/2021 09/19/2021 09/19/2021 8 :47 PM CDT RHINO/ENTEROVIRUS (Adult) 09/19/2021 09/19/2021 1:16 AM CDT documented as of this encounter Care Teams Internal Medicine Nurse Practitioner Relationship Specialty Start Date End Date Andre Lopez MD [address] [place] [address] PCP - General Family Practice 10/30/15 documented as of this encounter
--- OUTSIDE RECORDS SUMMARY | 2024-12-20 10:06 | XMS_ITS | Encounter Summary ---
Author Organization [facility] Address [address] [place] [address] Care Team Providers Care Dry Transfer Worker Name Role Phone Andre Lopez MD Primary Care Provider Encounter Details Date Type Department Care Team (Late st Contact Info) Description 08/14/2006 Outpatient Historical [facility] Family Medicine Tia Aragon [address] [facility] [address] [place] [address] [place] [address] [facility] [address] [place] [address] Social History Tobacco Use Types Packs/Day Years Used Date Smoking Tobacco: Never Assessed Comments Unknown Sex and Gender Information Value Date Recorded Sex Assigned at Not on file Legal Sex Female 2:59 AM SEALING MACHINE OPERATOR Gender Identity Not on file [...] documented as of this encounter Care Teams Dry Transfer Worker Relationship Specialty Start Date End Date Andre Lopez MD [address] [place] [phone] PCP - General Family Practice 10/30/15 documented as of this encounter
--- OUTSIDE RECORDS SUMMARY | 2024-12-20 10:06 | XMS_ITS | Encounter Summary ---
Author Organization [facility] Address [address] [place] [address] Care Team Providers Care Junior Web Developer Name Role Phone Andre Lopez MD Primary Care Provider Encounter Details Date Type Department Care Team (Latest Contact Info) Description 05/08/2006 Outpatient Historical [facility] Family Medicine [facility] [address] [place] [address] Kam Grossman Other Malaise and Fatigue (Primary Dx) Social History Tobacco Use Types Packs/Day Years Used Date Smoking Tobacco: Never Assessed Comments Unknown Sex and Gender Information Value Date Recorded Sex Assigned at Not on file Legal Sex Female 2:59 AM SHIPPER Gender Identity Not on file Sexual Orientation Not on file documented as of this encounter Plan of Treatment Not on file documented as of this encounter Procedures Procedure Name Priority Date/Time Associated Diagnosis Comments TSH WITH REFLEX FT4 AND FT3 Routine 05/08/2006 10:20 AM SHIPPER documented in this encounter Results * TSH WITH REFLEX FT4 AND FT3 (05/08/2006 10:20 AM SHIPPER) TSH 2.11 0.27 - 4.20 uU/mL INTERFACE SYSTEM 05/08/2006 10:2 0 AM SHIPPER us Kam Grossman CHEMISTRY ORDERABLES Edited INTERFACE SYSTEM Refer to clinic/hospital department documented in this encounter Visit Diagnoses Diagnosis Other malaise and fatigue- Primary documented in this encounter Additional Health Concerns Infection Onset Date Last Indicated Resolved Time R/O Respiratory 09/19/2021 09/19/2021 09/19/2021 8 :47 PM CDT RHINO/ENTEROVIRUS (Adult) 09/19/2021 09/19/2021 1:16 AM CDT documented as of this encounter Care Teams Junior Web Developer Relationship Specialty Start Date End Date Andre Lopez MD [address] [place] [address] PCP - General Family Practice 10/30/15 documented as of this encounter
--- OUTSIDE RECORDS SUMMARY | 2024-12-20 10:07 | XMS_ITS | Clinical Summary ---
Author Organization [facility] Address [address] [place] [address] Care Team Providers Care Adult Ministries Director Name Role Phone Andre Lopez MD Primary Care Provider Allergies Active Allergy Reactions Criticality Noted Date [...] on file Legal Sex Female 2:59 AM COIN MACHINE COLLECTOR SUPERVISOR Gender Identity Not on file Sexual Orientation [...] 2:14 PM CDT Height 162.6 cm (5' 4) 09/21/2021 2:14 PM CDT Body Mass Index 42.29 09/21/2021 2:14 PM CDT Plan of Treatment Health Maintenance Due Date Last Done Comments HPV VACCINES (1 - 3-dose series) 01/18/2000 HEPATITIS B VACCINES (1 of 3 - 19+ 3-dose series) 12/30 HPV/Cotest (21-29) 2006 CERVICAL CANCER SCREENING 2015 HPV/Cotest (30-65) 2015 PAP SMEAR 2015 09/30/2007 INFLUENZA VACCINE (#1) 2024 01/22/2018 DTAP/TDAP/TD VACCINES (2 - Tdap) 01/23/2028 01/23/20 18 Insurance BS BLUE ACCESS/TRUE BLUE PPO RX EXPRESS [employer] Commercial RX [employer] Express Advance Directives For more information, please contact: [phone] * Full Code (Latest Code Status on [...] 2:01 PM 11/07/2015 1:31 PM Care Teams Adult Ministries Director Relationship Specialty Start Date End Date Andre Lopez MD [address] [place] [address] PCP - General Family Practice 10/30/15
--- OUTSIDE RECORDS SUMMARY | 2024-12-20 10:07 | XMS_ITS | Encounter Summary ---
Author Organization [employer] Address [address] [place] [address] Care Team Providers Care Claims Adjudicator Name Role Phone Andre Lopez MD Primary Care Provider Encounter Details Date Type Department Care Team (Late st Contact Info) Description 02/03/2003 Emergency [facility] Dionne Vang, Authorized P NO ADDRESS ON FILE SPRAIN OF ANKLE NOS (Primary Dx) Social History Tobacco Use Types Packs/Day Years Used Date Smoking Tobacco: Never Assessed Comments Unknown Sex and Gender Information Value Date Recorded Sex Assigned at Not on file Legal Sex Female 2:59 AM AUTOMATIC THREAD WINDER Gender Identity Not on file Sexual Orientation [...] documented as of this encounter Care Teams Claims Adjudicator Relationship Specialty Start Date End Date Andre Lopez MD [address] [place] [address] PCP - General Family Practice 10/30/15 documented as of this encounter
--- OUTSIDE RECORDS SUMMARY | 2024-12-20 10:07 | XMS_ITS | Encounter Summary ---
Author Organization [employer] Address [address] [place] [address] Care Team Providers Care Conservation Scientist Name Role Phone Andre Lopez MD Primary Care Provider Encounter Details Date Type Department Care Team (Late st Contact Info) Description 06/29/2000 Emergency [facility] Clarence Villalobos MD NO ADDRESS ON FILE Er, Authorized P NO ADDRESS ON FILE Unspecified asthma(493.90) (Primary Dx) Social History Tobacco Use Types Packs/Day Years Used Date Smoking Tobacco: Never Assessed Comments Unknown Sex and Gender Information Value Date Recorded Sex Assigned at Not on file Legal Sex Female 2:59 AM SURGICAL TERRITORY MANAGER Gender Identity Not on file Sexual [...] documented as of this encounter Care Teams Conservation Scientist Relationship Specialty Start Date End Date Andre Lopez MD [address] [place] [address] PCP - General Family Practice 10/30/15 documented as of this encounter
--- OUTSIDE RECORDS SUMMARY | 2024-12-20 10:07 | XMS_ITS | Encounter Summary ---
Author Organization [employer] Address [address] [place] [address] Care Team Providers Care Chemical Processor Name Role Phone Andre Lopez MD Primary Care Provider Encounter Details Date Type Department Care Team (Late st Contact Info) Description 10/27/2002 Emergency [facility] Natasha Souza MD NO ADDRESS ON FILE [place], Authorized P NO ADDRESS ON FILE OPEN WOUND OF FOREHEAD (Primary Dx) Social History Tobacco Use Types Packs/Day Years Used Date Smoking Tobacco: Never Assessed Comments Unknown Sex and Gender Information Value Date Recorded Sex Assigned at Not on file Legal Sex Female 2:59 AM RETORT PRESS OPERATOR Gender Identity Not on file [...] documented as of this encounter Care Teams Chemical Processor Relationship Specialty Start Date End Date Andre Lopez MD [address] [place] [address] PCP - General Family Practice 10/30/15 documented as of this encounter
--- OUTSIDE RECORDS SUMMARY | 2024-12-20 10:07 | XMS_ITS | Encounter Summary ---
Author Organization [employer] Address [address] [place] [address] Care Team Providers Care Senior Treasury Consultant Name Role Phone Andre Lopez MD Primary Care Provider Encounter Details Date Type Department Care Team (Late st Contact Info) Description 03/14/2005 Emergency [facility] PipersteveMarquise DO [address] [place] [id number] Er, Authorized P NO ADDRESS ON FILE SPRAIN OF ANKLE NOS (Primary Dx) Social History Tobacco Use Types Packs/Day Years Used Date Smoking Tobacco: Never Assessed Comments Unknown Sex and Gender Information Value Date Recorded Sex Assigned at Not on file Legal Sex Female 2:59 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
--- OUTSIDE RECORDS SUMMARY | 2024-12-20 10:07 | XMS_ITS | Encounter Summary ---
Author Organization [employer] Address [address] [place] [address] Care Team Providers Care Fiberglass Tube Molder Name Role Phone Andre Lopez MD Primary Care Provider Encounter Details Date Type Department Care Team (Late st Contact Info) Description 05/16/2005 Emergency [facility] Beatriz Claros MD [facility] [place] [address] Er, Authorized P NO ADDRESS ON FILE CELLULITIS OF LEG (Primary Dx) Social History Tobacco Use Types Packs/Day Years Used Date Smoking Tobacco: Never Assessed Comments Unknown Sex and Gender Information Value Date Recorded Sex Assigned at Not on file Legal Sex Female 2:59 AM ESCALATOR OPERATOR Gender Identity Not on file Sexual [...] documented as of this encounter Care Teams Fiberglass Tube Molder Relationship Specialty Start Date End Date Andre Lopez MD [address] [place] [address] PCP - General Family Practice 10/30/15 documented as of this encounter
--- OUTSIDE RECORDS SUMMARY | 2024-12-20 10:07 | XMS_ITS | Encounter Summary ---
Author Organization [facility] Address [address] [place] [address] Care Team Providers Care Machine Cementer Name Role Phone Andre Lopez MD Primary Care Provider Encounter Details Date Type Department Care Team (Late st Contact Info) Description 09/22/2008 Emergency [facility] Er, Authorized P NO ADDRESS ON FILE Champ Li MD NO ADDRESS ON FILE Social History Tobacco Use Types Packs/Day Years Used Date Smoking Tobacco: Never Assessed Comments Unknown Sex and Gender Information Value Date Recorded Sex Assigned at Not on file Legal Sex Female 2:59 AM MUSEUM SERVICE SCHEDULER Gender Identity Not on file Sexual Orientation [...] AM CDT Narrative 09/22/2008 12:19 PM CDT [address] [place], [place] [address] Admit Date: 09/22/2008 EBONI RAMIREZ Sex: F Admit Prov: ER, AUTHORIZED P Date: 1985 Primary Care Prov: PCP, NONE; LESLIE LLOYDN: [id number] MONCHO Lara N: [id number] Room: [facility] Ordering Prov: N/A Accession Number: [id number] Interpretation CLINICAL INDICATION: 23-year-old woman with pain [...] DKT Procedure Note Brandon Hobson - 09/22/2008 [facility] [address] [place], [place] [address] Admit Date: 09/22/2008 EBONI RAMIREZ Sex: F Admit Prov: ER, AUTHORIZED P Date: 1985 Primary Care Prov: PCP, NONE; RENEE LLOYD: [phone] MONCHO Lara N: [id number] Room: [facility] Ordering Prov: N/A Interpretation CLINICAL [...] documented as of this encounter Care Teams Machine Cementer Relationship Specialty Start Date End Date Andre Lopez MD [address] [place] [address] PCP - General Family Practice 10/30/15 documented as of this encounter
--- OUTSIDE RECORDS SUMMARY | 2024-12-20 10:07 | XMS_ITS | Encounter Summary ---
Author Organization [facility] Address [address] [place] [address] Care Team Providers Care Ballistician Name Role Phone Andre Lopez MD Primary Care Provider Encounter Details Date Type Department Care Team (Late st Contact Info) Description 10/23/2005 Inpatient Historical [facility] [place] [address] [facility] [address] [place] [address] Cellulitis and Abscess of Leg, except Foot (Primary Dx) Social History Tobacco Use Types Packs/Day Years Used Date Smoking Tobacco: Never Assessed Comments Unknown Sex and Gender Information Value Date Recorded Sex Assigned at Not on file Legal Sex Female 2:59 AM PARK SERVICES SPECIALIST Gender Identity Not on file Sexual [...] INTERFACE SYSTEM Comment: [facility]: [facility] [id number] [place] [address] HAILEY RAMOS MD 10/25/2005 7:26 AM CDT us Jose Avery MD CHEMISTRY ORDERABLES Final Result INTERFACE SYSTEM Refer to clinic/hospital department * IGE (10/25/2005 7:26 AM CDT) IGE 92 <GN=469 kU/L INTERFACE SYSTEM Comment: Lab test performed by: [facility] [id number] [place] [address] HAILEY RAMOS MD 10/25/2005 7:26 AM CDT us Jose Avery MD CHEMISTRY ORDERABLES Final Result Performing Organization Address City/State/[facility] Co de Phone Number INTERFACE SYSTEM Refer to clinic/hospital department * IGG (10/25/2005 7:26 AM CDT) IGG 900 724 - 1501 mg/dL INTERFACE SYSTEM 10/25/2005 7:26 AM CDT Jose Avery MD CHEMISTRY ORDERABLES Final Result Performing Organization Address City/[facility] de Phone Number INTERFACE SYSTEM Refer to clinic/hospital department * IGM (10/25/2005 7:26 AM CDT) IGM 126.4 60.0 - 292.0 mg/dL INTERFACE SYSTEM 10/25/2005 7:26 AM CDT Jose Avery MD CHEMISTRY ORDERABLES Final Result Performing Organization Address City/[facility] Co de Phone Number INTERFACE SYSTEM Refer to clinic/hospital department * IGA (10/25/2005 7:26 AM CDT) IGA 136.6 83.0 - 336.0 mg/dL INTERFACE SYSTEM 10/25/2005 7:26 AM CDT Jose Avery MD CHEMISTRY ORDERABLES Final Result Performing Organization Address City/State/[facility] Co de Phone Number INTERFACE SYSTEM Refer to clinic/hospital department * (ABNORMAL) C-REACTIVE PROTEIN (10/24/2005 1:43 PM CDT) CRP 8.0(H) 0.0 - 0.8 mg/dL INTERFACE SYSTEM 10/24/2005 1:43 PM CDT [employer] Beatty CHEMISTRY ORDERABLES Final Re sult Performing Organization Address City/[facility] Co in Phone Number INTERFACE SYSTEM Refer to clinic/hospital [...] mmol/L INTERFACE SYSTEM 10/24/2005 1:43 PM CDT [employer] Beatty CHEMISTRY ORDERABLES Final Re sult Performing Organization Address [facility] Phone Number INTERFACE SYSTEM Refer to clinic/hospital [...] mg/dL INTERFACE SYSTEM 10/24/2005 1:43 PM CDT [employer] Beatty CHEMISTRY ORDERABLES Final Re sult INTERFACE [...] WITH DIFFERENTIAL (10/23/2005 3:40 PM CDT) Pathologist [facility] NEUTROPHILS 70 45 - 70 % [...] HEMATOLOGY ORDERABLES Final Result Performing Organization Address [facility] Phone Number INTERFACE SYSTEM Refer to clinic/hospital [...] HEMATOLOGY ORDERABLES Final Result Performing Organization Address [facility] Phone Number INTERFACE SYSTEM Refer to clinic/hospital department documented in this encounter Visit Diagnoses Diagnosis Cellulitis and abscess of leg, except foot- Primary documented in this encounter Additional Health Concerns Infection Onset Date Last Indicated Resolved Time R/O Respiratory 09/19/2021 09/19/2021 09/19/2021 8 :47 PM CDT RHINO/ENTEROVIRUS (Adult) 09/19/2021 09/19/2021 1:16 AM CDT documented as of this encounter Care Teams Ballistician Relationship Specialty Start Date End Date Andre Lopez MD [address] [place] [address] PCP - General Family Practice 10/30/15 documented as of this encounter
--- OUTSIDE RECORDS SUMMARY | 2024-12-20 10:07 | XMS_ITS | Encounter Summary ---
Author Organization [facility] Address [address] [place] [address] Care Team Providers Care Enterprise Analyst Name Role Phone Andre Lopez MD Primary Care Provider Encounter Details Date Type Department Care Team (Latest Contact Info) Description 06/17/2007 Outpatient Historical [facility] Family Medicine [facility] [address] [place] [address] [place] [address] [place] [address] Enlargement of Lymph Nodes Social History Tobacco Use Types Packs/Day Years Used Date Smoking Tobacco: Never Assessed Comments Unknown Sex and Gender Information Value Date Recorded Sex Assigned at Not on file Legal Sex Female 2:59 AM 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
--- OUTSIDE RECORDS SUMMARY | 2024-12-20 10:07 | XMS_ITS | Encounter Summary ---
Author Organization [employer] Address [address] [place] [address] Care Team Providers Care Scrap Dealer Name Role Phone Andre Lopez MD Primary Care Provider Encounter Details Date Type Department Care Team (Late st Contact Info) Description 09/17/2003 Emergency [facility] Champ Li MD NO ADDRESS ON FILE Er, Authorized P NO ADDRESS ON FILE SPRAIN OF NECK (Primary Dx) Social History Tobacco Use Types Packs/Day Years Used Date Smoking Tobacco: Never Assessed Comments Unknown Sex and Gender Information Value Date Recorded Sex Assigned at Not on file Legal Sex Female 2:59 AM TWINE REELING MACHINE OPERATOR Gender Identity Not on file [...] documented as of this encounter Care Teams Scrap Dealer Relationship Specialty Start Date End Date Andre Lopez MD [address] [place] [address] PCP - General Family Practice 10/30/15 documented as of this encounter
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
--- OUTSIDE RECORDS SUMMARY | 2024-12-20 10:07 | XMS_ITS | Encounter Summary ---
Author Organization [employer] Address 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
--- OUTSIDE RECORDS SUMMARY | 2024-12-20 10:07 | XMS_ITS | Encounter Summary ---
Author Organization [employer] Address [address] [place] [address] Care Team Providers Care Skid Adzer Name Role Phone Andre Lopez MD Primary Care Provider Encounter Details Date Type Department Care Team (Late st Contact Info) Description 04/20/2005 Emergency [facility] Margarito Griggs MD NO ADDRESS ON FILE Er, Authorized P NO ADDRESS ON FILE JOINT PAIN-ANKLE (Primary Dx) Social History Tobacco Use Types Packs/Day Years Used Date Smoking Tobacco: Never Assessed Comments Unknown Sex and Gender Information Value Date Recorded Sex Assigned at Not on file Legal Sex Female 2:59 AM FREEZER ASSISTANT Gender Identity Not on file Sexual Orientation Not on file documented as of this encounter Plan of Treatment Not on file documented as of this encounter Procedures Procedure Name Priority Date/Time Associated Diagnosis Comments CBC WITH DIFFERENTIAL Routine 04/20/2005 10:39 PM FREEZER ASSISTANT CBC WITH DIFFERENTIAL Routine 04/20/2005 10:39 PM FREEZER ASSISTANT C-REACTIVE PROTEIN Routine 04/20/2005 10 :39 PM FREEZER ASSISTANT documented in this encounter Results * (ABNORMAL) CBC WITH DIFFERENTIAL (04/20/2005 10:39 PM FREEZER ASSISTANT) Pathologist [facility] NEUTROPHILS 92(H) 45 - 70 % INTERFAC [...] K/uL INTERFACE SYSTEM 04/20/2005 10:3 9 PM FREEZER ASSISTANT us Margarito Griggs MD HEMATOLOGY ORDERABLES Final Result Performing Organization Address [facility] de Phone Number INTERFACE SYSTEM Refer to clinic/hospital department * (ABNORMAL) CBC WITH DIFFERENTIAL (04/20/2005 10:39 PM FREEZER ASSISTANT) Pathologist [facility] WBC 16.3(H) 4.0 - 9.8 K/uL INTERFACE [...] fL INTERFACE SYSTEM 04/20/2005 10:3 9 PM FREEZER ASSISTANT us Margarito Griggs MD HEMATOLOGY ORDERABLES Final Result Performing Organization Address [facility] de Phone Number INTERFACE SYSTEM Refer to clinic/hospital department * C-REACTIVE PROTEIN (04/20/2005 10:39 PM FREEZER ASSISTANT) CRP <0.5 0.0 - 0.8 mg/dL INTERFACE SYSTEM 04/20/2005 10:3 9 PM FREEZER ASSISTANT us Margarito Griggs MD CHEMISTRY ORDERABLES Final [...] documented as of this encounter Care Teams Skid Adzer Relationship Specialty Start Date End Date Andre Lopez MD [address] [place] [address] PCP - General Family Practice 10/30/15 documented as of this encounter
[2024-12-20 13:36] LABS: Alanine Aminotransferase 19 U/L (6-35); Albumin Level 4.4 g/dL (3.5-5.1); Alkaline Phosphatase 55 U/L (38-126); Aspartate Amino Transferase 53 U/L (14-36); Bilirubin,Total 0.7 mg/dL (0.2-1.3); Total Protein 7.1 g/dL (6.3-8.2)
== END 2024-12-20 10:03 | disposition home or self-care (01) ==
LOC: ANHGOSHLAB 10:04
PROVIDERS: PCP Nurse Practitioner Family; Visit Provider Student in an Organized Health Care Education/Training Program
DX: R79.89 Other specified abnormal findings of blood chemistry (principal)
CPT/HCPCS: 36415; 80076

== ENCOUNTER 2025-01-27 07:47 | Outpatient (CLI) | payer BC, SELFPAY ==
--- OUTSIDE RECORDS SUMMARY | 2025-01-27 07:52 | XMS_ITS | Encounter Summary ---
Author Organization [employer] Address [address] [place] [address] Care Team Providers Care Restoration Silversmith Name Role Phone Andre Lopez MD Primary [...] on file Legal Sex Female 2:59 AM ART PSYCHOTHERAPIST Gender Identity Not on file Sexual Orientation [...] documented as of this encounter Care Teams Restoration Silversmith Relationship Specialty Start Date End Date Andre Lopez MD [address] [place] [address] PCP - General Family Practice 10/30/15 documented as of this encounter
--- OUTSIDE RECORDS SUMMARY | 2025-01-27 07:53 | XMS_ITS | Encounter Summary ---
Author Organization [facility] Address [address] [place] [address] Care Team Providers Care Manager Resource Name Role Phone Andre Lopez MD Primary Care Provider Encounter Details Date Type Department Care Team (Late st Contact Info) Description 05/16/[address] [facility] Family Medicine [facility] [address] [place] [address] Dionne Anderson MD NO ADDRESS ON FILE Social History Tobacco Use Types Packs/Day Years Used Date Smoking Tobacco: Never Assessed Comments Unknown Sex and Gender Information Value Date Recorded Sex Assigned at Not on file Legal Sex Female 2:59 AM PARTS CLERK Gender Identity Not on file Sexual Orientation Not on file documented as of this encounter Last Filed Vital Signs Vital Sign Reading Time Taken Comments Blood Pressure 987/4 05/16/2007 2:00 PM PARTS CLERK Pulse 62 05/16/2007 2:00 PM PARTS CLERK Temperature 36.9 C (98.4 F) 05/16/2007 2:00 PM PARTS CLERK Respiratory Rate - - Oxygen Saturation - - Inhaled Oxygen Concentration - - Weight 95.7 kg (211 lb) 05/16/2007 2:00 PM PARTS CLERK Height - - Body Mass Index - [...] as of this encounter Care Teams Manager Resource Relationship Specialty Start Date End Date Andre Lopez MD [address] [place] [address] PCP - General Family Practice 10/30/15 documented as of this encounter
--- OUTSIDE RECORDS SUMMARY | 2025-01-27 07:53 | XMS_ITS | Encounter Summary ---
Author Organization [facility] Address [address] [place] [address] Care Team Providers Care Sack Lifter Name Role Phone Andre Lopez MD Primary Care Provider Encounter Details Date Type Department Care Team (Latest Contact Info) Description 05/08/2006 Outpatient Historical [facility] Family Medicine [facility] [address] [place] [address] Kam Grossman Other Malaise and Fatigue (Primary Dx) Social History Tobacco Use Types Packs/Day Years Used Date Smoking Tobacco: Never Assessed Comments Unknown Sex and Gender Information Value Date Recorded Sex Assigned at Not on file Legal Sex Female 2:59 AM SEGMENT BLOCK LAYER Gender Identity Not on file Sexual Orientation Not on file documented as of this encounter Plan of Treatment Not on file documented as of this encounter Procedures Procedure Name Priority Date/Time Associated Diagnosis Comments TSH WITH REFLEX FT4 AND FT3 Routine 05/08/2006 10:20 AM SEGMENT BLOCK LAYER documented in this encounter Results * TSH WITH REFLEX FT4 AND FT3 (05/08/2006 10:20 AM SEGMENT BLOCK LAYER) TSH 2.11 0.27 - 4.20 uU/mL INTERFACE SYSTEM 05/08/2006 10:2 0 AM SEGMENT BLOCK LAYER us Kam Grossman CHEMISTRY ORDERABLES Edited INTERFACE SYSTEM Refer to clinic/hospital department documented in this encounter Visit Diagnoses Diagnosis Other malaise and fatigue- Primary documented in this encounter Additional Health Concerns Infection Onset Date Last Indicated Resolved Time R/O Respiratory 09/19/2021 09/19/2021 09/19/2021 8 :47 PM CDT RHINO/ENTEROVIRUS (Adult) 09/19/2021 09/19/2021 1:16 AM CDT documented as of this encounter Care Teams Sack Lifter Relationship Specialty Start Date End Date Andre Lopez MD [address] [place] [address] PCP - General Family Practice 10/30/15 documented as of this encounter
--- OUTSIDE RECORDS SUMMARY | 2025-01-27 07:53 | XMS_ITS | Encounter Summary ---
Author Organization [facility] Address [address] [place] [address] Care Team Providers Care Metal Smelter Name Role Phone Andre Lopez MD Primary Care Provider Encounter Details Date Type Department Care Team (Late st Contact Info) Description 08/14/2006 Outpatient Historical [facility] Family Medicine Tia Aragon [address] [place] [address] [place] [address] [address] [place] [address] Social History Tobacco Use Types Packs/Day Years Used Date Smoking Tobacco: Never Assessed Comments Unknown Sex and Gender Information Value Date Recorded Sex Assigned at Not on file Legal Sex Female 2:59 AM ASSEMBLER KNIFE Gender Identity Not on file Sexual Orientation [...] documented as of this encounter Care Teams Metal Smelter Relationship Specialty Start Date End Date Andre Lopez MD [address] [place] [address] PCP - General Family Practice 10/30/15 documented as of this encounter
--- OUTSIDE RECORDS SUMMARY | 2025-01-27 07:53 | XMS_ITS | Encounter Summary ---
Author Organization [facility] Address [address] [place] [address] Attn: Epic Prelude ADT [facility] [place] [address] Care Team Providers Care Proposal Analyst Name Role Phone Andre Lopez MD Primary Care Provider Encounter Details Date Type Department Care Team (Latest Contact Info) Description 05/11/2006 Orders Only Mayuri Mae MD [address] [facility] [address] [place] [address] Social History Tobacco Use Types Packs/Day Years Used Date Smoking Tobacco: Never Assessed Comments Unknown Sex and Gender Information Value Date Recorded Sex Assigned at Not on file Legal Sex Female 2:59 AM LABORER CUTTING TOOL Gender Identity Not on file Sexual Orientation Not on file documented as of this encounter Progress Notes * Mayuri Florez - 09/25/2007 11:45 AM CDT TIME:08:04 am PATIENT`S HOME PHONE: PATIENT`S WORK PHONE: PATIENT`S INSURANCE: [employer] WHO TOOK THE CALL: Geni Wright M GENERAL INFORMATION PATIENT STATUS: Established Patient. PCP: Tu. ALTERNATIVE PHONE NUMBER: [phone] WHO CALLED: Patient called. SECTION 1: REQUESTED [...] documented as of this encounter Care Teams Proposal Analyst Relationship Specialty Start Date End Date Andre Lopez MD [address] [place] [address] PCP - General Family Practice 10/30/15 documented as of this encounter
--- OUTSIDE RECORDS SUMMARY | 2025-01-27 07:53 | XMS_ITS | Encounter Summary ---
Author Organization [facility] Address [address] [place] [address] Care Team Providers Care Production Control Expert Name Role Phone Andre Lopez MD Primary Care Provider Encounter Details Date Type Department Care Team (Latest Contact Info) Description 05/16/2007 Outpatient Historical [facility] Family Medicine [facility] [address] [facility] [address] [address] [place] [address] [place] [address] [place] [address] Enlargement of Lymph Nodes Social History Tobacco Use Types Packs/Day Years Used Date Smoking Tobacco: Never Assessed Comments Unknown Sex and Gender Information Value Date Recorded Sex Assigned at Not on file Legal Sex Female 2:59 AM DUBBING MACHINE OPERATOR Gender Identity Not on file Sexual Orientation Not on file documented as of this encounter Plan of Treatment Not on file documented as of this encounter Procedures Procedure Name Priority Date/Time Associated Diagnosis Comments TSH WITH REFLEX FT4 AND FT3 Routine 05/18/2007 9:54 AM DUBBING MACHINE OPERATOR GLUCOSE FASTING Routine 05/18/2007 9:54 AM DUBBING MACHINE OPERATOR LIPID PANEL Routine 05/18/2007 9:54 AM DUBBING MACHINE OPERATOR MONONUCLEOSIS SCREEN W/REFLEX EBV IGM AB Routine 05/16/2007 3:13 PM DUBBING MACHINE OPERATOR EBV IGM, VCA Routine 05/16/2007 3:13 PM DUBBING MACHINE OPERATOR documented in this encounter Results * TSH WITH REFLEX FT4 AND FT3 (05/18/2007 9:54 AM DUBBING MACHINE OPERATOR) TSH 1.74 0.27 - 4.20 uU/mL INTERFACE SYSTEM 05/18/2007 9:54 AM DUBBING MACHINE OPERATOR us Wei Chaidez MD CHEMISTRY ORDERABLES Edited Performing Organization Address [facility] de Phone Number INTERFACE SYSTEM Refer to clinic/hospital department * GLUCOSE FASTING (05/18/2007 9:54 AM DUBBING MACHINE OPERATOR) GLUCOSE FASTING 91 65 - 99 mg/dL INTERFACE SYSTEM 05/18/2007 9:54 AM DUBBING MACHINE OPERATOR us Wei Chaidez MD CHEMISTRY ORDERABLES Edited Performing Organization Address [facility] de Phone Number INTERFACE SYSTEM Refer to clinic/hospital department * (ABNORMAL) LIPID PANEL (05/18/2007 9:54 AM DUBBING MACHINE OPERATOR) CHOLESTEROL 203(H) 100 - 199 mg/dL INTERFACE SYSTEM TRIGLYCERIDE 113 10 - 149 mg/dL INTERFACE SYSTEM HDL 57 40 - 59 mg/dL INTERFACE SYSTEM CHOL/HDL RATIO 3.6 2.0 - 5.0 INTER FACE SYSTEM LDL CALCULATED 123(H) <=99 mg/dL INTERFACE SYSTEM LIPID PANEL COMMENT See Below INTERFACE SYSTEM Comment: The adult ATP and pediatric NCEP classifications for lipids are available on the [facility] Intranet at: [email or web address] hospital[facility]/[email or web address] Select: Lab Policies and Procedures,Current Select: Lipid Panel Interpretation 05/18/2007 9:54 AM DUBBING MACHINE OPERATOR us Wei Chaidez MD CHEMISTRY ORDERABLES Edited Performing Organization Address City/[facility]/ZIP Co de Phone Number INTERFACE SYSTEM Refer to clinic/hospital department * EBV IGM, VCA (05/16/2007 3:13 PM DUBBING MACHINE OPERATOR) EBV IGM, VCA < OR = [...] OF THE PATIENT. Lab test performed by: [facility] [address] [place] [address] MARILY BRAND MD 05/16/2007 3:13 PM DUBBING MACHINE OPERATOR us Wei Chaidez MD CHEMISTRY ORDERABLES COM Edited Performing Organization Address [facility] Phone Number INTERFACE SYSTEM Refer to clinic/hospital department * MONONUCLEOSIS SCREEN W/REFLEX EBV IGM AB (05/16/2007 3:13 PM DUBBING MACHINE OPERATOR) MONONUCLEOSIS SCREEN Negative Negative INTERFACE SYSTEM EBV IGM AB REFLEX Sent to Ref. Lab INTERFACE SYSTEM 05/16/2007 3:13 PM DUBBING MACHINE OPERATOR us Wei Chaidez MD HEMATOLOGY ORDERABLES Edited Performing Organization Address [facility] Phone Number INTERFACE SYSTEM Refer to clinic/hospital department documented in this encounter Visit Diagnoses Diagnosis Enlargement of lymph nodes documented in this encounter Additional Health Concerns Infection Onset Date Last Indicated Resolved Time R/O Respiratory 09/19/2021 09/19/2021 09/19/2021 8 :47 PM CDT RHINO/ENTEROVIRUS (Adult) 09/19/2021 09/19/2021 1:16 AM CDT documented as of this encounter Care Teams Production Control Expert Relationship Specialty Start Date End Date Andre Lopez MD [address] [place] [address] PCP - General Family Practice 10/30/15 documented as of this encounter
--- OUTSIDE RECORDS SUMMARY | 2025-01-27 07:53 | XMS_ITS | Encounter Summary ---
Author Organization [facility] Address [address] [place] [address] Attn: Epic Prelude ADT [facility] [place] [address] Care Team Providers Care Trencher Driver Name Role Phone Andre Lopez MD Primary Care Provider Encounter Details Date Type Department Care Team (Latest Contact Info) Description 05/08/2006 Orders Only Mayuri Mae MD [address] [facility] [address] [place] [address] Social History Tobacco Use Types Packs/Day Years Used Date Smoking Tobacco: Never Assessed Comments Unknown Sex and Gender Information Value Date Recorded Sex Assigned at Not on file Legal Sex Female 2:59 AM CLINICAL LAB ASSISTANT Gender Identity Not on file Sexual [...] smoking history. OCCUPATION: . 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 LAB ORDERS: Order number: [id number] Test Ordered: TSH (REFLEX FREE T4/FREE T3) 1727 TIME PHYSICIAN WITH PATIENT: TOTAL: 25 minutes. REGARDING: Need for HPV vaccine; pt plans to decide and arrange with either MFM or her primary kier hand. RETURN VISIT: Patient is to return on [...] documented as of this encounter Care Teams Trencher Driver Relationship Specialty Start Date End Date Andre Lopez MD [address] [place] [address] PCP - General Family Practice 10/30/15 documented as of this encounter
--- OUTSIDE RECORDS SUMMARY | 2025-01-27 07:53 | XMS_ITS | Encounter Summary ---
Author Organization [employer] Address [address] [place] [address] Care Team Providers Care Guest Services Coordinator Name Role Phone Andre Lopez MD Primary [...] on file Legal Sex Female 2:59 AM POWDER MILL OPERATOR Gender Identity Not on file Sexual [...] documented as of this encounter Care Teams Guest Services Coordinator Relationship Specialty Start Date End Date Andre Lopez MD [address] [place] [address] PCP - General Family Practice 10/30/15 documented as of this encounter
--- OUTSIDE RECORDS SUMMARY | 2025-01-27 07:53 | XMS_ITS | Encounter Summary ---
Author Organization [facility] Address [address] [place] [address] Care Team Providers Care Retail Department Reset Name Role Phone Andre Lopez MD Primary Care Provider Encounter Details Date Type Department Care Team (Late st Contact Info) Description 05/08/2006 Outpatient Historical [facility] Family Medicine Tia Aragon [address] [facility] [address] [place] [address] [place] [address] [facility] [facility] [address] [place] [address] Social History Tobacco Use Types Packs/Day Years Used Date Smoking Tobacco: Never Assessed Comments Unknown Sex and Gender Information Value Date Recorded Sex Assigned at Not on file Legal Sex Female 2:59 AM ASSISTANT CHIEF OF POLICE Gender Identity Not on file Sexual Orientation Not on file documented as of this encounter Last Filed Vital Signs Vital Sign Reading Time Taken Comments Blood Pressure 122/80 05/08/2006 9:00 AM ASSISTANT CHIEF OF POLICE Pulse 72 05/08/2006 9:00 AM ASSISTANT CHIEF OF POLICE Temperature - - Respiratory Rate - - Oxygen Saturation - - Inhaled Oxygen Concentration - - Weight 85.3 kg (188 lb) 05/08/2006 9:00 AM ASSISTANT CHIEF OF POLICE Height - - Body Mass Index - [...] documented as of this encounter Care Teams Retail Department Reset Relationship Specialty Start Date End Date Andre Lopez MD [address] [place] [address] PCP - General Family Practice 10/30/15 documented as of this encounter
--- OUTSIDE RECORDS SUMMARY | 2025-01-27 07:53 | XMS_ITS | Encounter Summary ---
Author Organization [facility] Address [address] [place] [address] Care Team Providers Care Health Care Liaison Name Role Phone Andre Lopez MD Primary [...] on file Legal Sex Female 2:59 AM SEWER AND DRAIN TECHNICIAN Gender Identity Not on file Sexual Orientation Not on file documented as of this encounter Plan of Treatment Not on file documented as of this encounter Procedures Procedure Name Priority Date/Time Associated Diagnosis Comments CBC WITH DIFFERENTIAL Routine 04/20/2005 10:39 PM SEWER AND DRAIN TECHNICIAN CBC WITH DIFFERENTIAL Routine 04/20/2005 10:39 PM SEWER AND DRAIN TECHNICIAN C-REACTIVE PROTEIN Routine 04/20/2005 10 :39 PM SEWER AND DRAIN TECHNICIAN documented in this encounter Results * (ABNORMAL) CBC WITH DIFFERENTIAL (04/20/2005 10:39 PM SEWER AND DRAIN TECHNICIAN) Pathologist [facility] NEUTROPHILS 92(H) 45 - 70 % INTERFAC [...] K/uL INTERFACE SYSTEM 04/20/2005 10:3 9 PM SEWER AND DRAIN TECHNICIAN us Margarito Griggs MD HEMATOLOGY ORDERABLES Final Result Performing Organization Address [facility] de Phone Number INTERFACE SYSTEM Refer to clinic/hospital department * (ABNORMAL) CBC WITH DIFFERENTIAL (04/20/2005 10:39 PM SEWER AND DRAIN TECHNICIAN) Pathologist [facility] WBC 16.3(H) 4.0 - 9.8 K/uL INTERFACE [...] fL INTERFACE SYSTEM 04/20/2005 10:3 9 PM SEWER AND DRAIN TECHNICIAN us Margarito Griggs MD HEMATOLOGY ORDERABLES Final Result Performing Organization Address [facility] de Phone Number INTERFACE SYSTEM Refer to clinic/hospital department * C-REACTIVE PROTEIN (04/20/2005 10:39 PM SEWER AND DRAIN TECHNICIAN) CRP <0.5 0.0 - 0.8 mg/dL INTERFACE SYSTEM 04/20/2005 10:3 9 PM SEWER AND DRAIN TECHNICIAN us Margarito Griggs MD CHEMISTRY ORDERABLES Final [...] as of this encounter Care Teams Health Care Liaison Relationship Specialty Start Date End Date Andre Lopez MD [address] [place] [address] PCP - General Family Practice 10/30/15 documented as of this encounter
--- OUTSIDE RECORDS SUMMARY | 2025-01-27 07:53 | XMS_ITS | Encounter Summary ---
Author Organization [employer] Address [address] [place] [address] Care Team Providers Care Development Coach Name Role Phone Andre Lopez MD Primary Care Provider [phone] Encounter Details Date Type Department Care Team (Late st Contact Info) Description 05/16/2005 Emergency [facility] Beatriz Claros MD [facility] [place] [address] Er, Authorized P NO ADDRESS ON FILE CELLULITIS OF LEG (Primary Dx) Social History Tobacco Use Types Packs/Day Years Used Date Smoking Tobacco: Never Assessed Comments Unknown Sex and Gender Information Value Date Recorded Sex Assigned at Not on file Legal Sex Female 2:59 AM VALUE ANALYST Gender Identity Not on file Sexual Orientation [...] documented as of this encounter Care Teams Development Coach Relationship Specialty Start Date End Date Andre Lopez MD [address] [place] [address] PCP - General Family Practice 10/30/15 documented as of this encounter
--- OUTSIDE RECORDS SUMMARY | 2025-01-27 07:53 | XMS_ITS | Encounter Summary ---
Author Organization [facility] Address [address] [place] [address] Care Team Providers Care Environmental Remediation Specialist Name Role Phone Andre Lopez MD Primary [...] on file Legal Sex Female 2:59 AM OPERATIONS SUPPORT MANAGER Gender Identity Not on file Sexual [...] AM CDT Narrative 09/22/2008 12:19 PM CDT [address] [place], [place] [address] Admit Date: 09/22/2008 EBONI RAMIREZ Sex: F Admit Prov: ER, AUTHORIZED P Date: 1985 Primary Care Prov: PCP, NONE; LESLIE LLOYDN: [phone] MONCHO Lara N: [id number] Room: [facility] Ordering Prov: N/A Accession Number: [id number] Interpretation CLINICAL INDICATION: 23-year-old woman with pain [...] DKT Procedure Note Brandon Hobson - 09/22/2008 [facility] [address] [place], [place] [address] Admit Date: 09/22/2008 EBONI RAMIREZ Sex: F Admit Prov: ER, AUTHORIZED P Date: 1985 Primary Care Prov: PCP, NONE; RENEE LLOYD: [id number] MONCHO Lara N: [id number] Room: [facility] Ordering Prov: N/A Interpretation CLINICAL INDICATION: 23-year-old woman with pain and swelling. REPORT: AP, LATERAL, NOTCH, SUNRISE VIEWS OF THE LEFT KNEE DATED09/22/2008 COMPARISON: None. FINDINGS: Bone mineralization and alignment are within normal limits.There is no acute fracture or dislocation. No large suprapatellar effusionis seen. Joint spaces are within normal limits. IMPRESSION: No acute fracture. . Dictated by: BRANDON HOSBON 09/22/2008 11:25 Electronically signed by: BRANDON HOBSON [...] documented as of this encounter Care Teams Environmental Remediation Specialist Relationship Specialty Start Date End Date Andre Lopez MD [address] [place] [address] PCP - General Family Practice 10/30/15 documented as of this encounter
--- OUTSIDE RECORDS SUMMARY | 2025-01-27 07:53 | XMS_ITS | Encounter Summary ---
Author Organization [employer] Address [address] [place] [address] Care Team Providers Care Refrigerator Cabinetmaker Name Role Phone Andre Lopez MD Primary [...] on file Legal Sex Female 2:59 AM FORESTRY WORKER Gender Identity Not on file Sexual [...] documented as of this encounter Care Teams Refrigerator Cabinetmaker Relationship Specialty Start Date End Date Andre Lopez MD [address] [place] [address] PCP - General Family Practice 10/30/15 documented as of this encounter
--- OUTSIDE RECORDS SUMMARY | 2025-01-27 07:53 | XMS_ITS | Encounter Summary ---
Author Organization [employer] Address [address] [place] [address] Care Team Providers Care Microfiche Duplicator Name Role Phone Andre Lopez MD Primary Care Provider Encounter Details Date Type Department Care Team (Late st Contact Info) Description 03/14/2005 Emergency [facility] PipersteveMarquise DO [address] [place] [address] Er, Authorized P NO ADDRESS ON FILE SPRAIN OF ANKLE NOS (Primary Dx) Social History Tobacco Use Types Packs/Day Years Used Date Smoking Tobacco: Never Assessed Comments Unknown Sex and Gender Information Value Date Recorded Sex Assigned at Not on file Legal Sex Female 2:59 AM GRAD INTERN Gender Identity Not on file Sexual [...] documented as of this encounter Care Teams Microfiche Duplicator Relationship Specialty Start Date End Date Andre Lopez MD [address] [place] [address] PCP - General Family Practice 10/30/15 documented as of this encounter
--- OUTSIDE RECORDS SUMMARY | 2025-01-27 07:53 | XMS_ITS | Encounter Summary ---
Author Organization [employer] Address [address] [place] [address] Care Team Providers Care Collating Machine Operator Name Role Phone Andre Lopez [...] on file Legal Sex Female 2:59 AM ROD PULLER Gender Identity Not on file Sexual Orientation [...] documented as of this encounter Care Teams Collating Machine Operator Relationship Specialty Start Date End Date Andre Lopez MD [address] [place] [address] PCP - General Family Practice 10/30/15 documented as of this encounter
--- OUTSIDE RECORDS SUMMARY | 2025-01-27 07:53 | XMS_ITS | Encounter Summary ---
Author Organization [facility] Address [address] [place] [address] Care Team Providers Care Crochet Machine Operator Name Role Phone Andre Lopez MD Primary Care Provider Encounter Details Date Type Department Care Team (Latest Contact Info) Description 06/17/2007 Outpatient Historical [facility] Family Medicine [facility] [address] [facility] [address] [place] [address] [place] [address] [place] [address] Enlargement of Lymph Nodes Social History Tobacco Use Types Packs/Day Years Used Date Smoking Tobacco: Never Assessed Comments Unknown Sex and Gender Information Value Date Recorded Sex Assigned at Not on file Legal Sex Female 2:59 AM PARACHUTE PACKER Gender Identity Not on file Sexual Orientation [...] documented as of this encounter Care Teams Crochet Machine Operator Relationship Specialty Start Date End Date Andre Lopez MD [address] [place] [address] PCP - General Family Practice 10/30/15 documented as of this encounter
--- OUTSIDE RECORDS SUMMARY | 2025-01-27 07:53 | XMS_ITS | Encounter Summary ---
Author Organization [facility] Address [address] [place] [address] Care Team Providers Care Sealer Dry Cell Name Role Phone Andre Lopez MD Primary Care Provider Encounter Details Date Type Department Care Team (Late st Contact Info) Description 10/24/2005 Outpatient Historical [facility] Blood Flow [address] [place] [address] Marcel Ferreira MD NO ADDRESS ON FILE Social History Tobacco Use Types Packs/Day Years Used Date Smoking Tobacco: Never Assessed Comments Unknown Sex and Gender Information Value Date Recorded Sex Assigned at Not on file Legal Sex Female 2:59 AM MARINATOR Gender Identity Not on file Sexual Orientation [...] documented as of this encounter Care Teams Sealer Dry Cell Relationship Specialty Start Date End Date Andre Lopez MD [address] [place] [address] PCP - General Family Practice 10/30/15 documented as of this encounter
--- OUTSIDE RECORDS SUMMARY | 2025-01-27 07:53 | XMS_ITS | Encounter Summary ---
Author Organization [facility] Address [address] [place] [address] Attn: Epic Prelude ADT [facility] [place] [address] Care Team Providers Care Home Health Care Social Worker Name Role Phone Andre Lopez MD Primary Care Provider Encounter Details Date Type Department Care Team (Latest Contact Info) Description 08/14/2006 Orders Only Mayuri Mae MD [address] [facility] [address] [place] [address] Social History Tobacco Use Types Packs/Day Years Used Date Smoking Tobacco: Never Assessed Comments Unknown Sex and Gender Information Value Date Recorded Sex Assigned at Not on file Legal Sex Female 2:59 AM SETTLEMENT PROCESSOR Gender Identity Not on file Sexual Orientation [...] been using nasal steroid (originally prescribed by fund raiser) ROS: GENERAL: HAS A FEVER, normal activity, [...] this encounter Care Teams Home Health Care Social Worker Relationship Specialty Start Date End Date Andre Lopez MD [address] [place] [address] PCP - General Family Practice 10/30/15 documented as of this encounter
--- OUTSIDE RECORDS SUMMARY | 2025-01-27 07:53 | XMS_ITS | Encounter Summary ---
Author Organization [employer] Address [address] [place] [address] Care Team Providers Care Computer Aided Design Operator Name Role Phone Andre Lopez MD [...] on file Legal Sex Female 2:59 AM WAREHOUSE FOREMAN Gender Identity Not on file Sexual Orientation [...] documented as of this encounter Care Teams Computer Aided Design Operator Relationship Specialty Start Date End Date Andre Lopez MD [address] [place] [address] PCP - General Family Practice 10/30/15 documented as of this encounter
--- OUTSIDE RECORDS SUMMARY | 2025-01-27 07:53 | XMS_ITS | Encounter Summary ---
Author Organization [employer] Address [address] [place] [address] Care Team Providers Care Wire Communications Engineer Name Role Phone Andre Lopez MD Primary Care Provider Encounter Details Date Type Department Care Team (Late st Contact Info) Description 10/23/2005 Inpatient Historical [facility] [place] [address] [facility] [address] [place] [address] Cellulitis and Abscess of Leg, except Foot (Primary Dx) Social History Tobacco Use Types Packs/Day Years Used Date Smoking Tobacco: Never Assessed Comments Unknown Sex and Gender Information Value Date Recorded Sex Assigned at Not on file Legal Sex Female 2:59 AM UTILITY BILL COMPLAINTS INVESTIGATOR Gender Identity Not on file Sexual Orientation [...] INTERFACE SYSTEM Comment: Lab test performed by: [facility] [id number] [place] [id number] HAILEY RAMOS MD 10/25/2005 7:26 AM CDT us Jose Avery MD CHEMISTRY ORDERABLES Final Result INTERFACE SYSTEM Refer to clinic/hospital department * IGE (10/25/2005 7:26 AM CDT) IGE 92 <GE=193 kU/L INTERFACE SYSTEM Comment: Lab test performed by: [facility] [id number] [place] [id number] HAILEY RAMOS MD 10/25/2005 7:26 AM CDT us Jose Avery MD CHEMISTRY ORDERABLES Final Result Performing Organization Address City/State/[facility] Co de Phone Number INTERFACE SYSTEM Refer to clinic/hospital department * IGG (10/25/2005 7:26 AM CDT) IGG 900 724 - 1501 mg/dL INTERFACE SYSTEM 10/25/2005 7:26 AM CDT Jose Avery MD CHEMISTRY ORDERABLES Final Result Performing Organization Address City/[facility] de Phone Number INTERFACE SYSTEM Refer to clinic/hospital department * IGM (10/25/2005 7:26 AM CDT) IGM 126.4 60.0 - 292.0 mg/dL INTERFACE SYSTEM 10/25/2005 7:26 AM CDT Jose Avery MD CHEMISTRY ORDERABLES Final Result Performing Organization Address City/[facility] Co de Phone Number INTERFACE SYSTEM Refer to clinic/hospital department * IGA (10/25/2005 7:26 AM CDT) IGA 136.6 83.0 - 336.0 mg/dL INTERFACE SYSTEM 10/25/2005 7:26 AM CDT Jose Avery MD CHEMISTRY ORDERABLES Final Result Performing Organization Address City/State/[facility] Co de Phone Number INTERFACE SYSTEM Refer to clinic/hospital department * (ABNORMAL) C-REACTIVE PROTEIN (10/24/2005 1:43 PM CDT) CRP 8.0(H) 0.0 - 0.8 mg/dL INTERFACE SYSTEM 10/24/2005 1:43 PM CDT [employer] [facility]ty CHEMISTRY ORDERABLES Final Re sult Performing Organization Address City/[facility] Co or Phone Number INTERFACE SYSTEM Refer to clinic/hospital [...] mmol/L INTERFACE SYSTEM 10/24/2005 1:43 PM CDT [employer] [place] CHEMISTRY ORDERABLES Final Re sult Performing Organization Address [facility] Phone Number INTERFACE SYSTEM Refer to clinic/hospital [...] mg/dL INTERFACE SYSTEM 10/24/2005 1:43 PM CDT [employer] [place] CHEMISTRY ORDERABLES Final Re sult INTERFACE [...] WITH DIFFERENTIAL (10/23/2005 3:40 PM CDT) Pathologist [facility] NEUTROPHILS 70 45 - 70 % INTERFAC [...] HEMATOLOGY ORDERABLES Final Result Performing Organization Address [facility] Phone Number INTERFACE SYSTEM Refer to clinic/hospital [...] HEMATOLOGY ORDERABLES Final Result Performing Organization Address [facility] Phone Number INTERFACE SYSTEM Refer to clinic/hospital department documented in this encounter Visit Diagnoses Diagnosis Cellulitis and abscess of leg, except foot- Primary documented in this encounter Additional Health Concerns Infection Onset Date Last Indicated Resolved Time R/O Respiratory 09/19/2021 09/19/2021 09/19/2021 8 :47 PM CDT RHINO/ENTEROVIRUS (Adult) 09/19/2021 09/19/2021 1:16 AM CDT documented as of this encounter Care Teams Wire Communications Engineer Relationship Specialty Start Date End Date Andre Lopez MD [address] [place] [address] PCP - General Family Practice 10/30/15 documented as of this encounter
--- OUTSIDE RECORDS SUMMARY | 2025-01-27 07:54 | XMS_ITS | Encounter Summary ---
Author Organization [employer] Address [address] [place] [address] Care Team Providers Care Vocal Teacher Name Role Phone Andre Lopez MD Primary [...] on file Legal Sex Female 2:59 AM STREETCAR REPAIRER Gender Identity Not on file Sexual Orientation [...] documented as of this encounter Care Teams Vocal Teacher Relationship Specialty Start Date End Date Andre Lopez MD [address] [place] [address] PCP - General Family Practice 10/30/15 documented as of this encounter
--- OUTSIDE RECORDS SUMMARY | 2025-01-27 07:54 | XMS_ITS | Clinical Summary ---
Author Organization [facility] Address [address] [place] [address] Care Team Providers Care Heavy Equipment Supervisor Name Role Phone Andre Lopez MD [...] Each 09/23/2021 3:20 PM CDT 2 Active albuterol sulfate HFA 90 mcg/actuation aerosol inhaler Inhale one to two puffs by mouth every 6 hours as needed for wheezing. 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 Gender Identity Not on file Sexual Orientation [...] 19+ 3-dose series) 12/30 HPV/Cotest (21-29) 2006 HPV VACCINES (1 - 3-dose SCDM series) 01/18/2012 CERVICAL CANCER SCREENING 2015 HPV/Cotest (30-65) 2015 PAP SMEAR 2015 09/30/2007 INFLUENZA VACCINE (#1) 2024 01/22/2018 BREAST CANCER SCREENING 2025 08/25/2020 DTAP/TDAP/TD VACCINES (2 - Tdap) 01/23/2028 01/23/20 18 Procedures Procedure Name Priority Date/Time Associated Diagnosis Comments MAMMO 3D JAMIL DIAGNOSTIC BILAT W OR WO CAD Routine 08/25/2020 12:03 PM CDT Lump or mass in breast from Last 3 Months or Most Recently Relevant to Health Maintenance Results * MAMMO DIAG BILAT 3D JAMIL W OR WO CAD (08/25/2020 12:03 PM CDT) Anatomical Region Laterality Modality Breast Bilateral Mammography Impressions 08/25/2020 1:12 PM CDT IMPRESSION: 1. Normal bilateral mammogram and unremarkable ultrasound of the lateral right breast. Recommendation: 1. Clinical follow-up is recommended for further management of the area of palpable concern in the right breast. Consultation with a breast surgeon should be considered for management of any suspicious change on clinical follow-up. 2. Patient should otherwise return for routine screening mammography beginning at the age of 40. Narrative 08/25/2020 1:12 PM CDT BILATERAL FULL-FIELD DIGITAL DIAGNOSTIC MAMMOGRAM WITH 3-D TOMOSYNTHESIS AND CAD RIGHT BREAST ULTRASOUND HISTORY: The patient is a 35-year-old female who describes a palpable lump in the lateral right breast. TECHNIQUE: Low Dose full field Digital Breast tomosynthesis examination was performed with 2D and 3D acquisitions. Examination is read in conjunction with computer aided detection. COMPARISON: None. This is the patient's first mammogram. BREAST COMPOSITION: Scattered fibroglandular densities. FINDINGS: No discrete mass or other mammographic abnormality is identified in the area of clinical concern within the lateral right breast. No dominant mass, distortion or concerning area of asymmetry is seen elsewhere within either breast. No suspicious microcalcifications are present. CAD is utilized. High-resolution ultrasound was performed throughout the lateral right breast to include the area of clinical concern. The visible fibroglandular tissues appear normal. No discrete solid or cystic mass is present. No architectural distortion or acoustic shadowing is seen. OVERALL FINAL ASSESSMENT: BI-RADS CATEGORY 1: Negative us Oscar Paz MD MAMMO ORDERABLES Edited Resu lt - Final from Last 3 Months or Most Recently Relevant to Health Maintenance Insurance E [facility] [place] [id number] BCBS BLUE ACCESS/TRUE BLUE PPO Commercial RX [employer] Express RX [facility] [employer] Advance Directives For more information, please contact: [phone] * Full Code (Latest Code Status on [...] 2:01 PM 11/07/2015 1:31 PM Care Teams Heavy Equipment Supervisor Relationship Specialty Start Date End Date Andre Lopez MD [address] [place] [address] PCP - General Family Practice 10/30/15
--- OUTSIDE RECORDS SUMMARY | 2025-01-27 07:54 | XMS_ITS | Encounter Summary ---
Author Organization [facility] Address [address] [place] [address] Care Team Providers Care Plating Engineer Name Role Phone Andre Lopez MD Primary Care Provider [phone] Encounter Details Date Type Department Care Team (Late st Contact Info) Description 05/16/2007 Orders Only [facility] Family Medicine [facility] [address] [facility] [address] [place] [address] Dionne Anderson MD NO ADDRESS ON FILE Social History Tobacco Use Types Packs/Day Years Used Date Smoking Tobacco: Never Assessed Comments Unknown Sex and Gender Information Value Date Recorded Sex Assigned at Not on file 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 exercising on Chanyouji machine 30 minutes 4times a week since (x 3 weeks). Also see hide salter for asthma medication and TRAMAINE. Has moved [...] ABNORMAL WEIGHT GAIN LAB ORDERS: Order number: [id number] Test Ordered: TSH (REFLEX FREE T4/FREE T3) 1727 Order number: [id number] Test Ordered: LIPID PANEL 1078 Order number: [id number] Test Ordered: GLUCOSE LEVEL, FASTING 1098 785.6-LYMPHADENOPATHY LAB ORDERS: Order number: [id number] Test Ordered: MONONUCLEOSIS SCREEN W/ REFLEX EBV [...] documented as of this encounter Care Teams Plating Engineer Relationship Specialty Start Date End Date Andre Lopez MD [address] [place] [address] PCP - General Family Practice 10/30/15 documented as of this encounter
--- NOTE | 2025-02-17 11:22 | P.SLEEP_ITS ---
Sleep Study Date of Study: 01/27/25 Ordering Provider: Natasha Miller NP Interpreting Physician: Ashia Jackson DO Sleep Study Type: Polysomnogram Height: 1.63 m Weight: 94.347 kg Body Mass Index: 35.6 Neck Circumference (inches): 14 [place]: 10 Reason for Sleep Study Daytime hypersomnia Sleep History The patient is a 40-year-old female that had a sleep study ordered by her primary care for evaluation of sleep apnea. The patient states that she has been monitoring her oxygen levels during her sleep using her watch. The patient has snoring and witnessed apneas. The patient denies awakening from sleep short of breath. She occasionally awakens at night with heartburn, belching or cough. She constantly snores loudly enough that others complain. She frequently has trouble sleeping when she has a cold. She rarely wakes up gasping for air throughout the night. She constantly has breathing problems at night observed by herself or others. She occasionally sweats excessively at night. She denies having heart palpitations or irregular heartbeats during the night. She denies falling asleep during the day and denies falling asleep while driving. She denies sleep paralysis, cataplexy and hypnagogic/ hypnopompic hallucinations. She denies having trouble at school or work due to sleepiness. She denies feeling afraid of going to sleep. She denies having nightmares. She rarely remembers her dreams. She occasionally has thoughts racing through her mind. She occasionally feels sad, depressed and anxious. She frequently has muscular tension. She frequently notices parts of her body jerk. She denies kicking during the night. She denies having crawling and aching feelings in her legs but frequently awakens with leg pain during the night. She rarely grinds her teeth during sleep but constantly awakens with jaw pain in the morning. She frequently is bothered by pain during the day and occasionally awakened by pain during the night. She denies waking up feeling stiff in the morning. She occasionally wakes up with sore or achy muscles. She occasionally wakes up with pain in the neck, spine and other joints. She goes to bed at 10:00 p.m. every night. It takes her 20 minutes to fall asleep. She wakes up 5 times throughout the night for unknown reasons and is able to fall back asleep within 5-10 minutes. She wakes up at 6:00 a.m. on weekdays and at 5:30 a.m. on the weekends. She typically gets 6-8.5 hours of sleep per night. She will stay in bed for 10 minutes after waking up in the morning. She currently lives with her and 3 children. She denies co nsuming any caffeinated beverages within 2 hours of bedtime. She denies engaging in physical exercise before bedtime. She denies reading and watching television before falling asleep. She denies taking naps in afternoon or the evening. She consumes 1 caffeinated beverage per day. She denies tobacco and alcohol use. She uses an unspecified recreational drugs. [facility] Past Medical History Medical History SOB (shortness of breath) on exertion Frequent headaches Attention Deficit Hyperactivity Disorder (ADHD) Dyslipidemia Broken finger Anxiety disorder, unspecified (~05/2018) Asthma (~1987) Tibia and fibula open fracture, right (~11/2018) Surgical History Surgical History H/O dilation and curettage 03/04/2014 Status post ORIF of fracture of ankle (~11/2018) Right ankle and leg plate and 7 screws (one broken) Family History Family History Grandparent Family history of glaucoma Cerebrovascular accident Family history of heart disease in male family member before age 55 Father Family history of heart disease in male family member before age 55 Social History Social History Smoking status: Never smoker Second hand tobacco smoke exposure: No Alcohol intake: current Drinks per week: 8 Substance use: never Lack of Transportation: No Lack of Food: Never True Current Housing: I Have Housing Concerned About Future Housing: No Difficulty Paying Gas/Electric Bills: No Difficulty Paying for Meds: No Currently Unemployed: No Education: Bachelor's Degree Difficulty w/ Childcare or Family Care: No Living arrangements: with family Occupation/Education: occupation 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 Gender identity (if verbalized by the patient): Female Spiritual care concerns: No Agree to blood products: Yes Medications Home Medications ?Medication ?Instructions ?Recorded ?Confirmed ?Type fexofenadine 180 mg tablet 180 mg PO DAILY 05/20/19 History (Rachel Allergy) fluticasone propionate 50 2 spray intranasal DAILY 06/2201/01/25 History mcg/actuation nasal spray,suspension (Flonase Allergy Relief) albuterol sulfate 90 mcg/actuation 2 puff inhalation Q 4H PRN 03/14/22 01/01/25 Rx aerosol inhaler (Ventolin HFA) shortness of breath or wheezing #8.5 grams fluticasone 500 mcg-salmeterol 50 inhalation ONCE 04/0101/01/25 History mcg/dose blistr powdr for inhalation (Advair Diskus) semaglutide (weight loss) 0.25 0.25 mg (0.5 mL) subcut WEEKLY #2 01/28/25 Rx mg/0.5 mL subcutaneous pen mL injector (Wejosevchris) buspirone 5 mg tablet 10 mg (2 x 5 mg) PO BID PRN 02/10/25 Rx anxiety #100 tabs lisdexamfetamine 30 mg capsule 30 mg PO DAILY #30 caps 02/10/25 Rx (Vyvanse) venlafaxine 37.5 mg tablet 37.5 mg PO DAILY #90 tabs 1 Rx Sleep Procedure A full night polysomnogram using the [employer] multi-channel system recorded the standard physiologic parameters including EEG, EOG, submentalis EMG, anterior tibialis EMG, EKG, body position, nasal and oral airflow using nasal pressure sensor and thermistor.? Respiratory parameters of chest and abdominal movements were recorded with Respiratory Inductance Plethysmography belts. Oxygen saturation was recorded by pulse oximetry. Video monitoring was also performed. Sleep stages, periodic limb movements, and EEG arousals were scored in 30 second epochs according to the criteria of the AASM Scoring Manual. The Apnea-Hypopnea Index was calculated using [facility] guidelines for definition of hypopnea with 4% O2 desaturations while scoring respiratory events. Sleep Architecture The total recording time was 427.7 minutes.? The total sleep time was 376.0 minutes. Sleep latency was 4.3 minutes. REM latency was 140.5 minutes. Sleep efficiency was 87.9%. The patient had 46 awakenings for an awakening index of 7.3. Wake after sleep onset time was 47.5 minutes. The patient spent 55.5 minutes, 14.8% of total sleep time in Stage N1. The patient spent 189.0 minutes, 50.3% in Stage N2. The patient spent 46.0 minutes, 12.2% in Stage N3. The patient spent 85.5 minutes, 22.7% in Stage REM sleep. Respiratory Analysis The patient had 16 hypopneas and 1 obstructive apnea for an overall Apnea Hypopnea Index of 2.7. The REM Apnea Hypopnea Index was 10.5. The NREM Apnea Hypopnea Index was 2.5. The patient had a Central Apnea Hypopnea Index of 0. There was no evidence of Levi-Cano Respirations. Arousals There were 131 total arousals for an arousal index of 20.9. There were 48 spontaneous arousals for an index of 7.7. There were 16 arousals due to respiratory events for an index of 2.6. There were 40 arousals due to periodic limb movements for an index of 6.4.? There were 26 arousals due to isolated limb movements for an index of 4.1. Periodic Limb Movements The patient had 62 isolated limb movements with an index of 9.9. The patient had 116 periodic limb movements with an index of 18.5, which is elevated (normal < 15). Patient had a total of 178 limb movements with a total limb movement index of 28.4. Oximetry Data The patient had an average oxygen saturation of 94.7% in sleep with a minimum oxygen saturation of 86.0% and a maximum oxygen saturation of 99.0%. The patient had 22 oxygen desaturations that were 4% or greater resulting in an Oxygen Desaturation Index of 3.5.? The patient spent 0.2 minutes, 0.1% of total sleep time with an oxygen saturation below 88%. Snoring Profile Mild snoring was present intermittently throughout the study. Cardiac Profile The EKG showed normal sinus rhythm. No arrhythmias or premature beats were seen.?The patient had an average pulse rate of 61.3 bpm with a minimum pulse of rate of 46.0 bpm and a maximum pulse rate of 89.0 bpm.? EEG Profile No signs of seizure activity seen. Assessment and Plan Assessment and Plan (1) PLMD (periodic limb movement disorder): Code(s): G47.61 - Periodic limb movement disorder Status: Acute Assessment and Plan: The patient had an overall AHI of 2.7 with desaturation down to 86%. This is not consistent with sleep-disordered breathing. The patient had a significant number of limb movements during the study with the majority being periodic in nature. Approximately 1/3 of the periodic limb movements caused arousals in the patient's sleep. The patient's sleep history does not suggest Restless Leg Syndrome. I recommend that the patient have a serum ferritin drawn for evaluation of iron deficiency anemia. If the patient has a serum ferritin less than 75 ng/mL, I recommend starting a daily iron supplement and a Vitamin C supplement for better absorption. If the serum ferritin is greater than 75 ng/mL, I recommend starting a dopamine agonist and titrating the dose until symptoms resolve. There are nonpharmacological methods to treat limb movements including daily exercise, stretching calf muscles before bed, avoiding excessive amounts of caffeine and alcohol, vitamin B supplementation, magnesium lotion massaged into legs before bed, and use of a weighted blanket. Data The data obtained during this sleep study is adequate for interpretation. Certification This sleep study has been reviewed by a board certified sleep medicine physician.
[2025-02-17 15:40] VITALS: BMI 35.6
== END 2025-01-28 06:17 | disposition home or self-care (01) ==
LOC: ANHCSM 07:47
PROVIDERS: PCP Nurse Practitioner Family; Visit Provider Nurse Practitioner Family
DX: G47.61 Periodic limb movement disorder (principal); G47.10 Hypersomnia, unspecified
CPT/HCPCS: 95810